=== PATIENT | female | born 1950 | race Caucasian/White ===

== ENCOUNTER 2022-04-15 11:15 | Outpatient (RCR) | payer MEDICARE, SELFPAY ==
--- NOTE | 2022-02-28 10:11 | PT.OPEX ---
PT [place] Outpatient Eval PT [facility] Outpatient Eval Start: 02/28/22 07:50 Freq: Status: Active Protocol: Document 02/28/22 07:51 FAZAL (Rec: 02/28/22 10:04 FAZAL [id number]) E-Signed By Colleen Tanner, PT Physical Therapy Outpatient Evaluation Insurance Information Recert Due Date 05/29/22 Insurance Name Medicare B,[employer]are Medical Diagnosis Cervicalgia, tension headache Treating Diagnosis Neck pain, TMJ pain, limited cervical ROM, DNF weakness, headache, poor postural positioning Referring MD Monteiro Subjective Subjective Patient reports to PT with primary complaint of neck pain (L>R) with associated TMJ pain (L) that began about 6-7 months ago with gradual and insidious onset however mainly attributes this to stress. She has focused on not clenching her jaw throughout the day which is helpful and sometimes uses mouth guard throughout the day. She has found herself also jutting her neck forward when she works at the computer. 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 She was seen in ED in October for this and was given gabapentin. Was also prescribed tramadol by her dentist which does help with TMJ pain and headaches but ultimately wants to be medication free. Other goals are to improve neck motion to look over her shoulder while driving, sleep throughout the night, reduce headache frequency/intensity, eliminate jaw pain. 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 Objective Other/Pertinent Objective Cervical ROM: -R Rot: 51 -L Rot:56 -R Sidebend:8 -L Sidebend:12 Seated posture: forward head, slight rounded shoulders Jaw mobility: -WNL jaw depression however deviation to the right, no clicking or popping -WNL jaw deviation R/L Palpation: increased tone L masseter, L UT DNF strength: able to hold and maintain x7 sec prior to accessory muscle use C-spine: hypomobility throughout with L side glides Assessment Assessment/Impression Patient is a 71 year old female presenting to physical therapy for evaluation and treatment of neck/jaw pain with associated headaches. Patient presents with Neck pain, TMJ pain, limited cervical ROM, DNF weakness, headache, poor postural positioning. These impairments are limiting the patients ability to drive, sleep, sit at computer, concentrate, perform work related tasks on farm. Patient appears motivated to participate in PT and presents with good prognosis to improve mobility, strength, proprioception and return to functional activities with skilled physical therapy intervention. Primary Functional Limitations drive, sleep, sit at computer, concentrate, perform work related tasks on farm Plan of Care Rehabilitation Potential Good Physical Therapy Goals In 6 weeks (04/11/22) Pt will demonstrate improved sitting posture without cueing in consecutive sessions in order to decrease strain on neck and TMJ. Pt will demonstrate WNL and pain free and equal cervical rotation in order to be able to look over her shoulders while driving Pt will report 25-50% improvement in frequency of headaches in order to improve concentration with work In 12 weeks (05/29/22) Pt will be independent and compliant with HEP Pt will report 75-100% improvement in frequency of headaches in order to improve concentration with work Pt will be able to maintain DNF chin tuck + lift for 30 seconds with minimal accessory muscle compensation in order to demonstrate increased DNF strength. Pt will demonstrate correct lifting mechanics floor to waist and waist to overhead 100% of the time without cuing in order to reduce neck strain with tasks on farm. Treatment Plan/Direct Interventions Heat,Ice/Cold/Vasopneumatic, Joint Mobilization,Manual Therapy,Neuromuscular Re-ed, Self-Care/Home Management, Therapeutic Activities Frequency/Duration Every other week for 12 weeks Patient Will Be Discharged From Therapy Completion of LTG(s), Independent w/HEP, Independently Progressing Evaluation Billing Untimed Code Treatment Minutes 26 Complexity Low Certification Information Initial Certification Date 02/28/22 Ending Certification Date 05/29/22
== END 2022-04-18 12:14 | disposition home or self-care (01) ==
PROVIDERS: PCP Internal Medicine; Visit Provider Internal Medicine
DX: M54.2 Cervicalgia (principal); G44.209 Tension-type headache, unspecified, not intractable; Z51.89 Encounter for other specified aftercare
CPT/HCPCS: 97110; 97140; 97161; 97535

== ENCOUNTER 2022-06-27 10:02 | Outpatient (CLI) | payer MEDICARE, SELFPAY ==
--- NOTE | 2022-06-27 10:15 | MR_ITS ---
[address] [address] Phone:?[phone] Fax:?[phone] Referring Physician Information: Byron Tipton M.D. [address] [facility] [address] Phone:?[phone] Fax:?[phone] Patient:Jessie Griffith D.O.B:?1950 Sex:?Female Phone:?[phone] [facility] MRN:?[id number] Exam Date:?06/27/2022 ? EXAM: MRI of the RIGHT SHOULDER, without contrast CLINICAL: Female, 71 years old, with right shoulder pain. INDICATION: Evaluate rotator cuff. PRIOR SURGERY: None reported. PLAIN FILMS: None available. COMPARISONS: No prior MRIs available. TECHNICAL: Using a 1.5T MR scanner and a localizing shoulder surface coil: 3.0 mm?coronal obliques: PD, T2, STIR 3.0 mm?sagittal obliques: PD, T2 3.0 mm?axials: PD, T2 SEDATION: None. CONTRAST: None. IMPRESSION: 1. Broad-based moderate towards marked deep surface tendinosis/attenuation of entire supraspinatus tendon without convincing well-defined full-thickness attenuation/tear, retraction or muscle atrophy. 2. Less prominent deep surface attenuation extends into adjacent infraspinatus tendon without full-thickness tear. 3. Chronic attenuation of the distal superior subscapularis tendon without convincing full-thickness tear, retraction or muscle atrophy. 4. Perhaps slight medial subluxation of the biceps tendon without more prominent displacement/dislocation or rupture. 5. Marked subacromial-subdeltoid bursal edema/bursitis. 6. Acromiohumeral distance at the lower limits of normal and moderate inferior hypertrophy of the acromioclavicular joint contribute an element of encroachment upon the subacromial space. 7. Mild right clinical osteoarthritis with moderate glenohumeral joint effusion. FINDINGS: Glenohumeral joint: Effusion/cyst: Moderate glenohumeral joint effusion. No paralabral ganglion cyst. Articular cartilage: Humeral head: No osteochondral abnormalities. Glenoid: No osteochondral abnormalities. Loose bodies: No demonstrable loose bodies. Inferior glenohumeral ligament/axillary recess: The axillary recess is normal in thickness and signal. No evidence of adhesive capsulitis or capsuloligamentous injury. Labrum: Rather prominent attenuation of the inferior and posterior greater than anterior labrum without convincing more well-defined linear labral tear. Bones: Proximal humerus: No fracture or marrow edema/pathology. Slight to mild subcortical bone marrow edema and irregularity of the anterior greater tuberosity underlies distal insertional rotator cuff tendinopathy and partial tear detailed below. The proximal humerus is otherwise intact Glenoid: Moderate towards marked chondral thinning of the superior into central aspect of the glenoid. No osseous Bankart lesion. Coracoacromial arch: Acromion morphology: Type II acromion with slight to mild anterior subacromial spur/enthesophyte. No mesoacromion or preacromion. Acromiohumeral space: At the lower limits of normal at a minimum of 5 mm associated with the above morphology. Coracohumeral space: Moderately narrowed. 9 mm bony distance. 4.5 mm soft tissue distance. 16 mm coracoid overlap. Acromioclavicular joint: Joint: Moderate degenerative hypertrophy of acromioclavicular joint contributes moderate encroachment upon the subacromial space where it abuts and mildly encroaches upon the contour of the underlying supraspinatus myotendinous junction (coronal T2 series 7, image 18; sagittal T2 series 8, image 12). Ligaments: Coracoclavicular ligaments are intact. Bursae: Subacromial-subdeltoid: Moderate towards marked subacromial-subdeltoid bursal fluid/bursitis (coronal STIR series 4, images 23-10). Subcoracoid: Also moderate abnormal-appearing subcoracoid bursal fluid/bursitis (axial T2 series 3, images 45-52). Rotator cuff and muscles/tendons: Supraspinatus: Abnormal supraspinatus tendinosis/tendinopathy is accompanied by rather broad-based deep surface fraying and attenuation/wear of virtually the entire supraspinatus tendon involving between 50 and closer to 80%, even 90% of tendon thickness (coronal STIR series 4, images 16-12; sagittal images 11-5). No convincing well-defined full-thickness attenuation/tear. No myotendinous junction retraction. Mild decreased muscle bulk is similar to other musculature of the shoulder. Infraspinatus: Tendinosis/tendinopathy and some deep surface attenuation extends into infraspinatus tendon as well, without full-thickness tear. No tendon or myotendinous junction retraction. No muscle atrophy. Teres minor: No tendinopathy, tear or atrophy. Subscapularis: Attenuation of the distal superior subscapularis tendon does not appear associated convincing defined full-thickness tear. No tendon retraction. Mild decreased muscle bulk is similar to other musculature of the shoulder. Deltoid: No strain or atrophy. Biceps tendon, long head: Slight medial subluxation of the long head of the biceps tendon without more prominent displacement/dislocation or rupture. Axilla: No axillary masses or abnormally enlarged lymphadenopathy. F Electronically signed on 06/28/2022 4:03:00 PM by Figueroa Piña M.D.
== END 2022-06-27 10:03 | disposition home or self-care (01) ==
LOC: MRI 10:03
PROVIDERS: PCP Internal Medicine; Visit Provider Orthopaedic Surgery
DX: M25.511 Pain in right shoulder (principal); S43.431A Superior glenoid labrum lesion of right shoulder, initial encounter; M75.51 Bursitis of right shoulder; M25.411 Effusion, right shoulder
CPT/HCPCS: 73221

== ENCOUNTER 2022-10-04 11:00 | Outpatient (RCR) | payer MEDICARE, SELFPAY ==
--- NOTE | 2022-08-08 15:30 | PT.OPEX ---
PT [place] Outpatient Eval PT [facility] Outpatient Eval Start: 08/08/22 13:01 Freq: Status: Active Protocol: Document 08/08/22 13:01 MERARI (Rec: 08/08/22 13:04 MERARI [id number]) E-signed By Meghan Alcantar PT Physical Therapy Outpatient Evaluation Insurance Information Recert Due Date 11/02/22 Insurance Name Medicare B Medical Diagnosis Rt shoulder Bursitis Treating Diagnosis Rt shoulder pain, reduced ease of ADL's, impaired AROM due to pain Rt shoulder weakness Poor posture Referring MD Dr Byron Tipton Subjective Subjective César reports having Rt shoulder and Lt hip pain. She was in so much pain, she started doing some shoulder ex she found on google, and her pain is much less since then. Dr Tipton was more concerned about pain in her shoulder due to rot cuff concerns. They did X-rays at Lt hip and it is perfect. I am concerned with my Rt knee too, looking at possibly having a TKR (I had my Lt TKR done previously). 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 Pain has been present for about 4 months. 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 WAlking in snow and mud. 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 Lt side to T10 Strength 5/5 but discomfort with testing Rt shoulder FF and ER Palpation Pain with moderate pressure over lateral humeral head, supraspinatus and infraspinatus mm belly Posture When asked to sit and stand with correct posture, she is able to do so. However, she slowly falls into shoulder protraction and slumped reduced lumbar lordosis, forward head. Assessment Assessment/Impression 71 yo with DX of Rt Shoulder Bursitis. She presents with shoulder protraction and slight elevation of Rt shoulder. Good AROM, with the exception of functional IR to sacrum (Lt to T10). MMT normal 5/5 but pain reported with testing FF and ER. Palpably, pain with moderate pressure at supraspinatus tendon and infraspinatus mm belly. Poor scapulo-humeral rhythm, lacking ana paula-scapular strength . She will benefit from continued skilled physical therapy to provide appropriate stretch/strengthening and postural education, use of ice for pain control. Plan of Care Rehabilitation Potential Good Physical Therapy Goals In 4-6 visits, César will be able to: 1. Demonstrate independence in HEP with emphasis on alignment, pace, reps and HOLD times 2. Demonstrate proper execution of posture in sitting and stance, with lifting and carrying. 3. Improved sleeping tolerance to 5 hours per night without awakening secondary to Rt shoulder pain. 4. Complete up to 2 hours of constant use of Rt UE without pain greater than 3/10 80% of the time (wash windows, cook, laundry, goat cares) 5. Computer use up to 4 hours / day without pain greater than 2/10 at Rt shoulder, 80% of the time. Coordination/Communication With Referral Source Treatment Plan/Direct Interventions Ice/Cold/Vasopneumatic,Joint Mobilization,Manual Therapy, Self-Care/Home Management, Therapeutic Activities, Therapeutic Exercises Patient Will Be Discharged From Therapy Completion of LTG(s),Skills Plateau,Independent w/HEP, Independently Progressing Evaluation Billing Untimed Code Treatment Minutes 21 Complexity Moderate Certification Information Initial Certification Date 08/08/22 Ending Certification Date 11/02/22 Provider Signature Shows Agreement With POC & Medical Necessity Physician Signature & Date Requested Please Sign/Date Here Physician Comment/Change : Physician NPI Number #
== END 2022-12-19 11:41 | disposition home or self-care (01) ==
PROVIDERS: PCP Internal Medicine; Visit Provider Orthopaedic Surgery
DX: M75.51 Bursitis of right shoulder (principal); Z51.89 Encounter for other specified aftercare
CPT/HCPCS: 97110; 97140; 97162

== ENCOUNTER 2023-04-14 09:15 | Outpatient (CLI) | payer MEDICARE, SELFPAY | END 2023-04-14 09:16 | disposition home or self-care (01) | LOC: NFLDREF 04-17 08:58 | PROVIDERS: PCP Internal Medicine; Referring Provider Internal Medicine; Visit Provider Internal Medicine | DX: E78.5 Hyperlipidemia, unspecified (principal); I10 Essential (primary) hypertension | CPT/HCPCS: 80048; 80061 ==

== ENCOUNTER 2023-04-17 09:55 | Outpatient (CLI) | payer MEDICARE, SELFPAY | END 2023-04-17 09:56 | disposition home or self-care (01) | LOC: NFLDREF 09:56 | PROVIDERS: PCP Internal Medicine; Visit Provider Internal Medicine | DX: R00.2 Palpitations (principal) | CPT/HCPCS: 84443 ==

== ENCOUNTER 2023-04-23 13:13 | Emergency (ER) | payer MEDICARE, SELFPAY ==
[2023-04-23] VITALS (15 sets, daily range): BP systolic 116–137; BP diastolic 67–114; PULSE 52–160; RESP 12–18; TEMP 37; O2SAT 93–96; BMI 27.4
--- NOTE | 2023-04-23 13:40 | ED.GENADULT ---
HPI - General Adult General Chief complaint: Arrhythmia/Palpitations Stated complaint: heart palpitations Time Seen by Provider: 04/23/23 13:17 Source: patient Mode of arrival: ambulatory Limitations: no limitations History of Present Illness HPI narrative: 72-year-old female coming in today complaining of palpitations. She states that she feels a little weak but denies feeling short of breath. She has no chest pain. She states that this has been going on for quite some time. She states that she 1st noticed palpitations about 3 years ago after she had a knee surgery. They came on rarely and lasted a few hours and then would disappear. Since August of this year she has felt them 2 or 3 times per month, each time lasting several hours. She was seen in the clinic last week for yearly physical where she mention these palpitations, blood work was done last week including a TSH, everything was unremarkable. Patient denies nausea or diaphoresis. Possible history significant for hypertension hyperlipidemia, history of systolic murmur. She takes rosuvastatin and chlorthalidone. Related Data Home Medications Medication Instructions Recorded Confirmed calcium carbonate 600 mg calcium 600 mg PO QDAY 03/16/22 04/17/23 (1,500 mg) tablet cholecalciferol (vitamin D3) 50 50 mcg PO QDAY 03/16/22 04/17/23 mcg (2,000 unit) capsule magnesium oxide 500 mg capsule 250 mg PO QDAY 03/16/22 04/17/23 docibvpgtxmn-ciioeran-ceajtl tablet 1 tab PO QDAY 03/16/22 04/17/23 omega 9-lrq-pir-fish oil 1,000 mg 1 cap PO QDAY 03/16/22 04/17/23 (120 mg-180 mg) capsule (Fish Oil) B-complex with vitamin C 1 cap PO QDAY 06/20/22 04/17/23 Previous Rx's Medication Instructions Recorded chlorthalidone 25 mg tablet 12.5 mg (1/2 x 25 mg) PO QDAY #45 03/17/22 tabs rosuvastatin 20 mg tablet 20 mg PO QDAY #90 tabs 04/17/23 apixaban 5 mg tablet (Eliquis) 5 mg PO BID #60 tabs 04/23/23 diltiazem HCl 120 mg 120 mg PO Q24H #30 caps 04/23/23 capsule,extended release 24 hr (Cardizem CD) Allergies Allergy/AdvReac Type Severity Reaction Status Date / Time Shellfish Allergy Allergy Uncoded 06/29/22 13:49 Review of Systems Status of ROS: Reports: 10 or more systems reviewed and unremarkable except as noted in History and below [facility] Medical History Carpal tunnel syndrome ?G56.00 - Carpal tunnel syndrome, unspecified upper limb (ICD-10) Surgical History History of total knee replacement ?Z96.659 - Presence of unspecified artificial knee joint (ICD-10) History of dilation and curettage ?Z98.890 - Other specified postprocedural states (ICD-10) Social History Smoking Status: Never smoker Non-prescribed substance use: denies use Little interest or pleasure in doing things: not at all Feeling down, depressed, or hopeless: not at all Exam Narrative: Exam Narrative: Well-nourished well-developed patient in no acute distress. Alert and oriented. Answers questions appropriately. Mood and affect are appropriate. Thoughts are goal oriented and rational. No tangential or magical thinking noted. Patient speaks in full sentences without needing to catch her breath. HEENT: Normocephalic atraumatic. Pupils are equally round reactive to light. Extraocular muscles are intact. Conjunctivae are moist without any icterus noted. Moist mucous membranes. Neck is supple. Cardiovascular: Irregularly irregular, tachycardic. Heart is beating too fast to note a systolic murmur. Lungs: Clear to auscultation bilaterally no wheezes rhonchi or rales are appreciated. Patient takes deep breaths without any discomfort. Abdomen: Soft and nontender nondistended with normal bowel sounds. Extremities: Bilateral lower extremities are without edema. Skin: Well perfused without any obvious rashes. Const: Vital Signs, click to edit/add: Vital Signs - 24 hr 04/23/23 13:20 04/23/23 13:25 04/23/23 14:02 Temperature 98.6 F Pulse Rate 98 Pulse Rate [Pulse Oximeter] 160 H Respiratory Rate 18 12 Blood Pressure 128/67 Blood Pressure [Le ft Upper Arm] 137/71 Pulse Oximetry 96 96 96 Oxygen Delivery Me thod Room Air 04/23/23 14:45 04/23/23 15:02 04/23/23 15:32 Temperature Pulse Rate 117 H 112 H 103 H Pulse Rate [Pulse Oximeter] Respiratory Rate 18 14 Blood Pressure 116/82 129/114 H Blood Pressure [Le ft Upper Arm] Pulse Oximetry 93 95 95 Oxygen Delivery Me thod 04/23/23 16:01 04/23/23 16:10 04/23/23 16:32 Temperature Pulse Rate 96 83 83 Pulse Rate [Pulse Oximeter] Respiratory Rate 16 12 14 Blood Pressure 120/92 H 127/78 128/76 Blood Pressure [Le ft Upper Arm] Pulse Oximetry 95 96 96 Oxygen Delivery Me thod 04/23/23 17:02 04/23/23 17:31 Temperature Pulse Rate 73 96 Pulse Rate [Pulse Oximeter] Respiratory Rate 16 14 Blood Pressure 116/91 H 127/87 Blood Pressure [Le ft Upper Arm] Pulse Oximetry 96 96 Oxygen Delivery Me thod Course Course Hospital Course: EKG, read by me, shows atrial fibrillation with a pulse of 158. IV is established and fluids were started. Patient received 10 mg of IV Cardizem as her blood pressure was a little low 115 systolic. While her pulse did not react to this, her blood pressure did increase to 130s. Repeat 10 mg was given without any change. Therefore a 20 mg bolus was done. This brought her pulse in to the 1 teens. Blood pressure remained stable. I did give her an oral dose of metoprolol succinate 25 mg. Lab work was done was unremarkable. Patient was monitored for several hours and pulse fluctuated between 80 and 130. I did speak to Cardiology at [facility], Dr. Brandon, who recommended either oral Cardizem or a Cardizem drip until we could get her pulse less than 110 consistently. I did go into room to tell the patient if she is going to be admitted and she did spontaneously convert to normal sinus rhythm. EKG done at this time showed sinus bradycardia with a pulse of 52. While she is being monitored here prior to converting, she did not feel her heart was palpitating or beating faster than usual. Vital Signs Vital signs: Initial Vital Signs Pulse Oximetry 96 04/23/23 13:20 Vital Signs Pulse Oximetry 96 04/23/23 13:20 Temperature 98.6 F 04/23/23 13:25 Pulse Rate 96 04/23/23 17:31 Respiratory Rate 14 04/23/23 17:31 Blood Pressure 127/87 04/23/23 17:31 Pulse Oximetry 96 04/23/23 17:31 Oxygen Delivery Method Room Air 04/23/23 13:25 Medical Decision Making MDM Narrative Medical decision making narrative: 72-year-old female with paroxysmal atrial fibrillation - converted back to normal sinus rhythm. Patient will be discharged home at this time and we will start her on Eliquis and oral diltiazem per recommendation of retail department manager. She will follow up with her primary care provider and scheduled. One dose of Eliquis given prior to discharge today. Medical Records Medical records reviewed: Yes I reviewed the patient's medical records Lab Data Lab results reviewed: Yes I reviewed the patient's lab results Labs: Lab Results 04/23/23 Range/Units 13:27 WBC 7.18 (4.50-11.00) K/uL RBC 5.25 H (4.00-5.20) m/uL Hgb 15.1 (12.0-16.0) gm/dL Hct 46.2 (33.0-51.0) % MCV 88 (80-100) fL MCH 29 (26-34) pg MCHC 33 (32-36) gm/dL RDW Coeff of [place] 13.2 (11.5-15.5) % Plt Count 216 (140-440) K/uL Neut % (Auto) 63.9 (42.0-72.0) % Lymph % (Auto) 28.8 (20-44) % [place] % (Auto) 5.4 (0.0-11.0) % Eos % (Auto) 1.4 (0.0-7.0) % Baso % (Auto) 0.4 (0.0-3.0) % Neut # (Auto) 4.58 (1.7-7.0) K/uL Lymph # (Auto) 2.07 (0.90-2.90) K/uL [place] # (Auto) 0.40 (0.00-0.90) K/UL Eos # (Auto) 0.10 (0.00-0.50) K/uL Baso # (Auto) 0.03 (0.00-0.30) K/uL Abs Immat Gran (auto) 0.01 (0.00-0.30) K/uL Imm/Tot Granulo (auto) 0.1 % Sodium 143 (135-149) mmol/L Potassium 3.6 (3.6-5.1) mmol/L Chloride 104 (96-114) mmol/L Carbon Dioxide 31 (20-32) mmol/L Anion Gap 8 (7-15) mEq/L BUN 21 (7-30) mg/dL Creatinine 0.9 (0.5-1.5) mg/dL Estimated Creat Clear 49.00 Estimated GFR 69 ml/min Glucose 146 H (60-115) mg/dL Calcium 10.7 H (8.4-10.6) mg/dL Magnesium 2.2 (1.5-2.6) mg/dL Troponin I 0.02 (0.01-0.04) ng/mL ECG Data Attestation: I personally reviewed and interpreted this ECG as follows: Discharge Plan Discharge Clinical Impression: AF (paroxysmal atrial fibrillation) Patient Disposition: Home, Self-Care Condition: Improved Additional Instructions: Start daily Eliquis which is a blood thinner to prevent blood clots. Start daily diltiazem which will bring your pulse down should you go back into atrial fibrillation. Follow-up with your primary care provider this coming week to see how you are doing, and to check your blood pressure and pulse. Prescriptions: New Eliquis 5 mg tablet 5 mg PO BID Qty: 60 2RF diltiazem HCl [Cardizem CD] 120 mg capsule,extended release 24hr 120 mg PO Q24H Qty: 30 2RF No Action B-complex with vitamin C Capsule 1 cap PO QDAY rosuvastatin 20 mg tablet 20 mg PO QDAY Qty: 90 0RF magnesium oxide 500 mg capsule 250 mg PO QDAY calcium carbonate 600 mg calcium (1,500 mg) tablet 600 mg PO QDAY wlnyhdoemhsq-azpywbve-syfbfn Tablet 1 tab PO QDAY cholecalciferol (vitamin D3) 50 mcg (2,000 unit) capsule 50 mcg PO QDAY omega 3-fjl-xzl-fish oil [Fish Oil] 1,000 mg (120 mg-180 mg) capsule 1 cap PO QDAY chlorthalidone 25 mg tablet 12.5 mg PO QDAY Qty: 45 3RF Follow Up/Referrals: Tiana Monteiro MD [Primary Care Provider] - Stand Alone Forms: [employer] Info Instructions
[2023-04-23 13:48] LABS: Basophils Absolute Auto 0.03 K/uL (0.00-0.30); Basophils Percent Auto 0.4 % (0.0-3.0); Eosinophils Percent Auto 1.4 % (0.0-7.0); Hematocrit 46.2 % (33.0-51.0); Hemoglobin* 15.1 gm/dL (12.0-16.0); Immature Granulocytes Abs Auto 0.01 K/uL (0.00-0.30); Immature Granulocytes Pct Auto 0.1 %; Lymphocytes Absolute Auto 2.07 K/uL (0.90-2.90); Lymphocytes Percent Auto 28.8 % (20-44); Mean Corpuscular HGB Conc 33 gm/dL (32-36); Mean Corpuscular Hemoglobin 29 pg (26-34); Mean Corpuscular Volume 88 fL (80-100); Monocytes Percent Auto 5.4 % (0.0-11.0); Neutrophils Absolute Auto 4.58 K/uL (1.7-7.0); Neutrophils Percent Auto 63.9 % (42.0-72.0); Platelet Count* 216 K/uL (140-440); RDW Coefficient of Variation % 13.2 % (11.5-15.5); Red Blood Count 5.25 m/uL (4.00-5.20); White Blood Count* 7.18 K/uL (4.50-11.00)
[2023-04-23] MEDS: 0.9 % SODIUM CHLORIDE 1000 ml 1,000 ML IV (13:52)
[2023-04-23] MEDS: dilTIAZem 5 MG/ML inj 10 MG IVP ×2 (13:53→14:26)
[2023-04-23 13:55] LABS: Slide Review Reflex No
[2023-04-23 14:01] LABS: Chloride* 104 mmol/L (96-114); Potassium* 3.6 mmol/L (3.6-5.1); Sodium* 143 mmol/L (135-149)
[2023-04-23 14:04] LABS: Anion Gap 8 mEq/L (7-15); Blood Urea Nitrogen* 21 mg/dL (7-30); Carbon Dioxide* 31 mmol/L (20-32); Creatinine* 0.9 mg/dL (0.5-1.5); Estimated Glomerular Filt Rate 69 ml/min
[2023-04-23 14:05] LABS: Calcium* 10.7 mg/dL (8.4-10.6); Glucose* 146 mg/dL (60-115); Magnesium* 2.2 mg/dL (1.5-2.6)
[2023-04-23 14:17] LABS: Troponin I* 0.02 ng/mL (0.01-0.04)
[2023-04-23] MEDS: METOPROLOL SUCCINATE (XL) 25 MG TAB PO (15:46)
[2023-04-23] MEDS: dilTIAZem 5 MG/ML inj 20 MG IVP (16:11)
[2023-04-23] MEDS: APIXABAN 5 MG TABLET PO (18:26)
== END 2023-04-23 18:40 | disposition home or self-care (01) ==
PROVIDERS: Emergency Provider Family Medicine; PCP Internal Medicine
DX: I48.0 Paroxysmal atrial fibrillation (principal)
CPT/HCPCS: 36415; 80048; 83735; 84484; 85025; 93005; 94761; 96361; 96374; 96375; 96376; 99284; 99285; A9270; J7030

== ENCOUNTER 2023-05-18 14:11 | Outpatient (CLI) | payer MEDICARE, SELFPAY ==
--- NOTE | 2023-05-18 14:30 | CRLHL7_ITS ---
For Patients: As a result of the Century Cures Act, medical imaging exams and procedure reports are released immediately into your electronic medical record. You may view this report before your referring provider. If you have questions, please contact your health care provider. DXA BONE MINERAL DENSITY STUDY Reason for exam: Asymptomatic menopausal state. Current height (in): 66. Weight (lb): 174. Menopause age: 62. Ethnicity: White. 1. Have you had a previous hip or vertebral fracture? No. 2. Have you had any fractures during your adult life which did not result from significant trauma (e.g., auto accident)? No. 3. Did either of your parents have a hip fracture? No. 4. Do you smoke? No. 5. Have you ever taken Glucocorticoids? No. 6. Do you have rheumatoid arthritis? No. 7. Do you have secondary osteoporosis? No. 8. Do you drink 3 or more alcoholic drinks per day? No. 9. Are you being treated for osteoporosis? No. 10. Have you ever taken any of the following medications: Actonel, Evista, Fosamax, Miacalcin, Reclast, Boniva, Forteo, HRT (i.e., estrogen/hormone therapy), Protelos, Prolia, Vitamin D, Calcium, other ??? please specify. ANSWER: Yes, Vitamin D and calcium. 11. Do you have any of the following medical conditions: Anorexia or bulimia, asthma or emphysema, end stage renal disease, hyperparathyroidism, any seizure disorders, cancer, inflammatory bowel diseases, hysterectomy, other ??? please specify. ANSWER: Yes, AFIB. 12. What was your maximum height (inches)? 66. 13. Do you perform weight bearing exercise regularly? Yes. 14. Do you regularly consume dairy products? Yes. 15. Do you drink caffeinated beverages? Yes. If female: 16. At what age did your period start? 18. 17. Are you premenopausal? No. 18. How many full-term pregnancies have you had? 4. 19. Have you ever missed your period for more than 6 months in a row (not including or menopause)? No. TECHNIQUE: Bone mineral density study was performed using the [employer]. FINDINGS: The results of the study expressed as bone mineral density (BMD) are as follows: Lumbar spine L2 to L4: BMD: 1.279 g/cm2. T-score: 1.8. Z-score: 4.0 Neck Left: BMD: 0.759 g/cm2. T-score: -0.8. Z-score: 1.0 Right: BMD: 0.827 g/cm2. T-score: -0.2. Z-score: 1.6 Total Left: BMD: 0.907 g/cm2. T-score: -0.3. Z-score: 1.2 Right: BMD: 0.964 g/cm2. T-score: 0.2. Z-score: 1.7 IMPRESSION: Normal bone density. Stephan Yao M.D. Diagnostic Radiologist [email or web address]/Dictated by: Stephan Yao MD @ 05/19/2023 12:23:00 PM (Electronically Signed)
== END 2023-05-18 14:12 | disposition home or self-care (01) ==
LOC: RAD 14:12
PROVIDERS: PCP Internal Medicine; Visit Provider Internal Medicine
DX: Z78.0 Asymptomatic menopausal state (principal); R00.2 Palpitations; I51.7 Cardiomegaly; R01.1 Cardiac murmur, unspecified
CPT/HCPCS: 77080; 93306

== ENCOUNTER 2023-06-29 10:31 | Inpatient (IN) | payer MEDICARE, SELFPAY ==
[2023-06-29] VITALS (50 sets, daily range): BP systolic 92–143; BP diastolic 58–128; PULSE 50–148; RESP 15–22; TEMP 36.3–37.2; O2SAT 93–98; BMI 28.2; BMI 28.1
[2023-06-29 11:20] LABS: Troponin, Point-of-Care* 0.01 ng/ml (0.01-0.04)
[2023-06-29] MEDS: 0.9 % SODIUM CHLORIDE 500 ML 500 ML IV ×2 (11:29→15:00)
--- NOTE | 2023-06-29 11:33 | ED_ITS ---
HPI - General Adult General Date Seen: 06/29/23 Chief complaint: Arrhythmia/Palpitations Stated complaint: Heart palpitations Time Seen by Provider: 06/29/23 11:11 Source: patient Mode of arrival: ambulatory Limitations: no limitations History of Present Illness HPI narrative: Patient is a 72-year-old woman who presents with atrial fibrillation which started a couple of hours prior to presentation. She says that she thinks she has probably had atrial fibrillation intermittently for 10 years but it was diagnosed in April and she was started on diltiazem and Eliquis. She takes her medications regularly. She says she has not really had trouble since starting the diltiazem and thought she was cured until this morning when she felt palpitations. She says that she gets a little bit lightheaded when she goes into atrial fibrillation but does not get chest pain or significant shortness of breath. She has had an echo which she reports showed of slightly enlarged left atrium but was otherwise unremarkable. She has not had a stress test. She has high blood pressure and high cholesterol which are managed with medications. She has no known coronary artery disease. She recently started exercising again, just walking on the treadmill and weightlifting, feels like that is been going fine. She does not smoke or drink. She is here with her . Related Data Home Medications Medication Instructions Recorded Confirmed calcium carbonate 600 mg calcium 600 mg PO QDAY 03/16/22 04/27/23 (1,500 mg) tablet cholecalciferol (vitamin D3) 50 50 mcg PO QDAY 03/16/22 04/27/23 mcg (2,000 unit) capsule magnesium oxide 500 mg capsule 250 mg PO QDAY 03/16/22 04/27/23 wyoxstqygevu-pxmdpcmr-hzcyty tablet 1 tab PO QDAY 03/16/22 04/27/23 B-complex with vitamin C 1 cap PO QDAY 06/20/22 04/27/23 lutein extract 15 mg-zeaxanthin 1 cap PO DAILY 04/27/23 04/27/23 extract 0.7 mg capsule omega 3-iuf-ass-fish oil 1,000 mg 2 cap PO QDAY 04/27/23 04/27/23 (120 mg-180 mg) capsule (Fish Oil) Previous Rx's Medication Instructions Recorded rosuvastatin 20 mg tablet 20 mg PO QDAY #90 tabs 04/17/23 chlorthalidone 25 mg tablet 12.5 mg (1/2 x 25 mg) PO QDAY #45 04/25/23 tabs apixaban 5 mg tablet (Eliquis) 5 mg PO BID #180 tabs 04/27/23 diltiazem HCl 120 mg 120 mg PO Q24H #90 caps 04/27/23 capsule,extended release 24 hr (Cardizem CD) Allergies Allergy/AdvReac Type Severity Reaction Status Date / Time shellfish derived Allergy Verified 06/29/23 11:23 Review of Systems Status of ROS: Reports: 10 or more systems reviewed and unremarkable except as noted in History and below [facility] Medical History Carpal tunnel syndrome ?G56.00 - Carpal tunnel syndrome, unspecified upper limb (ICD-10) Surgical History History of total knee replacement ?Z96.659 - Presence of unspecified artificial knee joint (ICD-10) History of dilation and curettage ?Z98.890 - Other specified postprocedural states (ICD-10) Social History Smoking Status: Never smoker Do you use any of these nicotine containing products: None Second hand tobacco smoke exposure: No How often do you have a drink containing alcohol: never How often do you have six or more drinks on one occasion: Never AUDIT-C Alcohol total score: 0 Non-prescribed substance use: denies use Little interest or pleasure in doing things: not at all Feeling down, depressed, or hopeless: not at all service: No Exam Narrative: Exam Narrative: Vital signs as noted above. In general, an alert, well-appearing patient. Head: Normocephalic, atraumatic. Eyes: Pupils are equal reactive. Extraocular movements are full. Conjunctivae are normal. ENT: Mucous membranes are moist. Throat is normal. Neck: Supple without lymphadenopathy. Heart: Tachycardic and irregular. No murmur. Lungs: Clear bilaterally. No increased work of breathing, crackles or wheezes. Abdomen: Soft and nontender. No organomegaly. Extremities: Well perfused. No edema. No calf tenderness. Pulses intact. Neurologic: Patient is alert and oriented to person and place. Speech is fluent. Face is symmetric. Moves all extremities equally. Affect: Normal. Skin: Warm and dry. Well perfused. Const: Vital Signs, click to edit/add: Vital Signs - 24 hr 06/29/23 10:40 06/29/23 10:48 06/29/23 11:03 Temperature 97.3 F L Pulse Rate 148 H Pulse Rate [Pulse Oximeter] 146 H Respiratory Rate 20 Blood Pressure 143/128 H Blood Pressure [Le ft Upper Arm] 139/93 H Pulse Oximetry 97 93 Oxygen Delivery Me thod Room Air 06/29/23 11:30 06/29/23 11:35 06/29/23 11:37 Temperature Pulse Rate 135 H 132 H 120 H Pulse Rate [Pulse Oximeter] Respiratory Rate Blood Pressure 129/109 H Blood Pressure [Le ft Upper Arm] Pulse Oximetry 96 96 97 Oxygen Delivery Me thod 06/29/23 11:38 06/29/23 11:39 06/29/23 11:45 Temperature Pulse Rate 118 H 117 H 101 H Pulse Rate [Pulse Oximeter] Respiratory Rate Blood Pressure 131/94 H Blood Pressure [Le ft Upper Arm] Pulse Oximetry 94 95 95 Oxygen Delivery Me thod 06/29/23 12:02 06/29/23 12:04 06/29/23 12:05 Temperature Pulse Rate 118 H 116 H 112 H Pulse Rate [Pulse Oximeter] Respiratory Rate Blood Pressure 122/101 H Blood Pressure [Le ft Upper Arm] Pulse Oximetry 96 95 94 Oxygen Delivery Me thod 06/29/23 12:15 06/29/23 12:30 06/29/23 12:31 Temperature Pulse Rate 110 H 103 H 130 H Pulse Rate [Pulse Oximeter] Respiratory Rate Blood Pressure 130/109 H Blood Pressure [Le ft Upper Arm] Pulse Oximetry 93 94 95 Oxygen Delivery Me thod 06/29/23 12:45 06/29/23 13:00 06/29/23 13:02 Temperature Pulse Rate 127 H 114 H 92 Pulse Rate [Pulse Oximeter] Respiratory Rate Blood Pressure 117/88 Blood Pressure [Le ft Upper Arm] Pulse Oximetry 96 94 95 Oxygen Delivery Me thod 06/29/23 13:03 06/29/23 13:09 06/29/23 13:15 Temperature Pulse Rate 71 108 H 108 H Pulse Rate [Pulse Oximeter] Respiratory Rate Blood Pressure 122/59 L Blood Pressure [Le ft Upper Arm] Pulse Oximetry 94 96 96 Oxygen Delivery Me thod 06/29/23 13:30 06/29/23 13:32 06/29/23 13:45 Temperature Pulse Rate 118 H 118 H 88 Pulse Rate [Pulse Oximeter] Respiratory Rate Blood Pressure 118/68 Blood Pressure [Le ft Upper Arm] Pulse Oximetry 95 95 96 Oxygen Delivery Me thod 06/29/23 14:00 06/29/23 14:02 06/29/23 14:15 Temperature Pulse Rate 87 104 H 117 H Pulse Rate [Pulse Oximeter] Respiratory Rate Blood Pressure 95/81 Blood Pressure [Le ft Upper Arm] Pulse Oximetry 98 97 95 Oxygen Delivery Me thod 06/29/23 14:30 06/29/23 14:32 06/29/23 14:46 Temperature Pulse Rate 107 H 126 H 109 H Pulse Rate [Pulse Oximeter] Respiratory Rate Blood Pressure 100/84 Blood Pressure [Le ft Upper Arm] Pulse Oximetry 96 97 95 Oxygen Delivery Me thod 06/29/23 15:01 06/29/23 15:02 06/29/23 15:03 Temperature Pulse Rate 104 H 142 H Pulse Rate [Pulse Oximeter] Respiratory Rate 17 15 16 Blood Pressure 112/84 Blood Pressure [Le ft Upper Arm] Pulse Oximetry 96 [facility] 15:10 06/29/23 15:12 06/29/23 15:15 Temperature Pulse Rate 113 H 100 120 H Pulse Rate [Pulse Oximeter] Respiratory Rate 18 22 Blood Pressure 129/103 H 92/67 Blood Pressure [Le ft Upper Arm] Pulse Oximetry 98 97 94 Oxygen Delivery Me od 06/29/23 15:17 Temperature Pulse Rate 107 H Pulse Rate [Pulse Oximeter] Respiratory Rate 17 Blood Pressure 102/75 Blood Pressure [Le ft Upper Arm] Pulse Oximetry 96 Oxygen Delivery Me thod Documenting provider has reviewed patient's vital signs: yes Course Course ED Course: Patient had an EKG on arrival which shows atrial fibrillation with rapid ventricular response ventricular rate of 154 beats per minute. She does have significant ST depression diffusely and some ST elevation noted in AVR but does not have any chest pain or pressure, initial troponin was 0.01. Discussed options with her, in terms of rate control and observation for a bit verses cardioversion. She would like to avoid cardioversion if possible. She says she typically goes back into sinus rhythm within a few hours. She came in today because she was not sure if she was supposed to be seen every time that she went into atrial fibrillation and she was not sure if it was okay to take an extra diltiazem. For now will try some IV diltiazem, check some basic labs, and observe for a bit. If she is not converting then would recommend cardioversion. Patient had 10 mg of IV diltiazem followed by 20 mg of IV diltiazem. She would have brief decrease in her heart rate to about 100 but then rate increased again to the 140s to 160. She continues to feel well without significant symptoms however rate is not controlled and I did recommend cardioversion. Risks and benefits were discussed and consent was signed. Procedure note: Dr. Rivera provided sedation for the procedure, please see his addendum for details. She was given propofol with good effect, tolerated this well without hypoxia or hypercapnia. She was cardioverted at 200 joules, synchronized. She had brief return to sinus rhythm with a rate in the 60s for perhaps 10-15 beats and then went back into a rapid atrial fibrillation with a rate around 140. I tried a 2nd cardioversion and again had a brief period in sinus with a controlled rate followed by return to atrial fibrillation with rapid ventricular rate. She awakened without difficulty, has no complaints. I did talk with Dr. Saavedra who was on-call for Cardiology at [facility]. We discussed options and he recommended using amiodarone for now given that the IV diltiazem did not seem to provide significant benefit. Consider another cardioversion if she does not convert over the next 24 hours. He would recommend EP study and stress testing as an outpatient. Recommended against other antiarrhythmics given that she has not had a workup for ischemia. Plan will be admission to the hospitalist, case discussed with Dr. Amos who has accepted the patient for admission. Vital Signs Vital signs: Initial Vital Signs Temperature 97.3 F L 06/29/23 10:40 Temperature Source Temporal Artery Scan 06/29/23 10:40 Pulse Rate 146 H 06/29/23 10:40 Pulse Rhythm Irregular 06/29/23 10:40 Respiratory Rate 20 06/29/23 10:40 Blood Pressure 139/93 H 06/29/23 10:40 Blood Pressure Mean 108 H 06/29/23 10:40 Blood Pressure Position Supine 06/29/23 10:40 Pulse Oximetry 97 06/29/23 10:40 Oxygen Delivery Method Room Air 06/29/23 10:40 Vital Signs Temperature 97.3 F L 06/29/23 10:40 Pulse Rate 146 H 06/29/23 10:40 Respiratory Rate 20 06/29/23 10:40 Blood Pressure 139/93 H 06/29/23 10:40 Pulse Oximetry 97 06/29/23 10:40 Oxygen Delivery Method Room Air 06/29/23 10:40 Temperature 97.3 F L 06/29/23 10:40 Pulse Rate 107 H 06/29/23 15:17 Respiratory Rate 17 06/29/23 15:17 Blood Pressure 102/75 06/29/23 15:17 Pulse Oximetry 96 06/29/23 15:17 Oxygen Delivery Method Room Air 06/29/23 10:40 Medications Administered Medications: Discontinued Medications Generic Name Dose Route Start Last Admin Trade Name Freq PRN Reason Stop Dose Admin Diltiazem HCl 10 mg 06/29/23 11:16 06/29/23 11:43 Diltiazem 5 Mg/Ml Inj IVP 06/29/23 11:17 10 mg ONCE ONE Administration Diltiazem HCl 20 mg 06/29/23 12:56 06/29/23 13:09 Diltiazem 5 Mg/Ml Inj IVP 06/29/23 12:57 20 mg ONCE ONE Administration Sodium Chloride 500 mls @ 500 mls/hr 06/29/23 11:16 06/29/23 12:16 0.9 % Sodium Chloride 500 Ml IV 06/29/23 12:15 Infused .Q1H ONE Infusion Medical Decision Making Lab Data Labs: Lab Results 06/29/23 06/29/23 Range/Units 11:04 11:17 WBC 5.90 (4.50-11.00) K/uL RBC 5.17 (4.00-5.20) m/uL Hgb 14.8 (12.0-16.0) gm/dL Hct 45.2 (33.0-51.0) % MCV 87 (80-100) fL MCH 29 (26-34) pg MCHC 33 (32-36) gm/dL RDW Coeff of [place] 13.4 (11.5-15.5) % Plt Count 216 (140-440) K/uL Neut % (Auto) 53.7 (42.0-72.0) % Lymph % (Auto) 36.8 (20-44) % [place] % (Auto) 6.6 (0.0-11.0) % Eos % (Auto) 2.4 (0.0-7.0) % Baso % (Auto) 0.5 (0.0-3.0) % Neut # (Auto) 3.17 (1.7-7.0) K/uL Lymph # (Auto) 2.17 (0.90-2.90) K/uL [place] # (Auto) 0.40 (0.00-0.90) K/UL Eos # (Auto) 0.14 (0.00-0.50) K/uL Baso # (Auto) 0.03 (0.00-0.30) K/uL Abs Immat Gran (auto) 0.00 (0.00-0.30) K/uL Imm/Tot Granulo (auto) 0.0 % Sodium 142 (135-149) mmol/L Potassium 3.3 L (3.6-5.1) mmol/L Chloride 104 (96-114) mmol/L Carbon Dioxide 28 (20-32) mmol/L Anion Gap 10 (7-15) mEq/L BUN 20 (7-30) mg/dL Creatinine 0.8 (0.5-1.5) mg/dL Estimated Creat Clear 49.00 Estimated GFR 79 ml/min Glucose 112 (60-115) mg/dL Calcium 10.4 (8.4-10.6) mg/dL Magnesium 2.2 (1.5-2.6) mg/dL POC Troponin I 0.01 (0.01-0.04) ng/ml Critical Care Time Critical Care Time Total Critical Care Time in Minutes: 60 Discharge Plan Discharge Clinical Impression: Atrial fibrillation Patient Disposition: Admitted As Observation Condition: Stable
[2023-06-29 11:35] LABS: Basophils Absolute Auto 0.03 K/uL (0.00-0.30); Basophils Percent Auto 0.5 % (0.0-3.0); Eosinophils Absolute Auto 0.14 K/uL (0.00-0.50); Eosinophils Percent Auto 2.4 % (0.0-7.0); Hematocrit 45.2 % (33.0-51.0); Hemoglobin* 14.8 gm/dL (12.0-16.0); Lymphocytes Absolute Auto 2.17 K/uL (0.90-2.90); Lymphocytes Percent Auto 36.8 % (20-44); Mean Corpuscular HGB Conc 33 gm/dL (32-36); Mean Corpuscular Hemoglobin 29 pg (26-34); Mean Corpuscular Volume 87 fL (80-100); Monocytes Percent Auto 6.6 % (0.0-11.0); Neutrophils Absolute Auto 3.17 K/uL (1.7-7.0); Neutrophils Percent Auto 53.7 % (42.0-72.0); Platelet Count* 216 K/uL (140-440); RDW Coefficient of Variation % 13.4 % (11.5-15.5); Red Blood Count 5.17 m/uL (4.00-5.20)
[2023-06-29 11:41] LABS: Chloride* 104 mmol/L (96-114); Potassium* 3.3 mmol/L (3.6-5.1); Sodium* 142 mmol/L (135-149)
[2023-06-29] MEDS: dilTIAZem 5 MG/ML inj 10 MG IVP (11:43)
[2023-06-29 11:44] LABS: Anion Gap 10 mEq/L (7-15); Blood Urea Nitrogen* 20 mg/dL (7-30); Carbon Dioxide* 28 mmol/L (20-32); Creatinine* 0.8 mg/dL (0.5-1.5); Estimated Glomerular Filt Rate 79 ml/min
[2023-06-29 11:45] LABS: Calcium* 10.4 mg/dL (8.4-10.6); Glucose* 112 mg/dL (60-115); Magnesium* 2.2 mg/dL (1.5-2.6)
[2023-06-29 11:46] LABS: Slide Review Reflex No
[2023-06-29] MEDS: dilTIAZem 5 MG/ML inj 20 MG IVP (13:09)
[2023-06-29] MEDS: PROPOFOL 10 MG/ML INJ 200 MG IVP (15:08)
[2023-06-29] MEDS: AMIODARONE 50 MG/ML inj 150 MG in 5 % DEXTROSE 100 ML 100 ML 618 MG IVPB (16:13)
--- NOTE | 2023-06-29 17:21 | ED.NURSE ---
report given to ad in M/S
[2023-06-29] MEDS: POTASSIUM BICARB 25 MEQ EFFERVESCENT TAB 50 MEQ PO (17:59)
[2023-06-29] MEDS: METOPROLOL TARTRATE 1 MG/ML inj 5 MG IVP (18:00)
--- NOTE | 2023-06-29 19:24 | PC.NURSE ---
Patient up to floor at 1750. Alert and oriented x4. SBA, 96% on RA. Reg diet, will be NPO at midnight in case a third Cardio Vert needs to be administered. Patient has two IV's, 20G in in L AC is SL, 18G in R AC is patent and has Amiodarone running at 33mls/hr. Patient tolerating well. Patient in A-fib, HR tachy. Patient received Metoprolol IV at 1800, tolerated well. Patient converted to Sinus Gama at 1900. notified. gave verbal to continue patient on Amiodarone drip until morning. Report given to LIZETH Bloom.
--- NOTE | 2023-06-29 19:46 | PC.NURSE ---
Pt allowed to take Home Ada ontiveros MD @ 1900 and 2100 dosage not given. Pt converted to Sinus Rhythm @ 1900. Dr ordered to remain on current rate of Amioderone ggt @33ml/hr. Change to 17ml/hr @ 2250. Run until morning.
--- NOTE | 2023-06-29 20:32 | P.IMHP_ITS ---
Hospitalist- H&P: KILO History of Present Illness Date Seen: 06/29/23 Chief complaint: Heart palpitations Narrative: César Griffith is a 72 year old female with paroxysmal atrial fibrillation admitted through the emergency department with atrial fibrillation with rapid ventricular response. Patient reports that starting about 9:00 a.m. today she could feel her heart beating fast and irregularly. She did not have chest pain. She was otherwise feeling well. Because of the persistence she came to the emergency room for evaluation. She reports that similar event occurred in April and at that time she had evaluation showing it was atrial fibrillation with rapid ventricular response. She was started on diltiazem and apixaban. Since then she has been generally doing well. The diltiazem 120 mg daily causes a bradycardia with a heart rate in the low 50s. Echocardiogram done at that time was normal. She reports that for about 10 years she has been having episodes like this. In the past year she has had episodes about twice a month where she feels her heart beat fast and irregular. These last 3-5 hours and spontaneously resolved. Until April of this year she had never had a formal diagnosis of atrial fibrillation. She has no other history of heart disease. No known coronary disease. In the emergency department they attempted cardioversion twice. In both cases she had brief episodes of sinus rhythm and quickly reverted back to AFib with RVR. After consultation with Cardiology was recommended she be loaded with amiodarone, and if she did not convert with amiodarone, a repeat cardioversion tomorrow after loading with amiodarone was recommended. Cardiology also wanted to have an assessment for ischemia with a stress test. She had normal thyroid testing recently. She drinks alcohol about 5 per week. Review of Systems Narrative: Other than her awareness of tachy palpitations she reports feeling fine [facility] Medical History (Updated 06/29/23 @ 20:43 by Jim Amos MD) Atrial fibrillation with rapid ventricular response ?I48.91 - Unspecified atrial fibrillation (ICD-10) Paroxysmal atrial fibrillation ?I48.0 - Paroxysmal atrial fibrillation (ICD-10) Irritable bowel syndrome ?K58.9 - Irritable bowel syndrome without diarrhea (ICD-10) Hyperlipidemia ?E78.5 - Hyperlipidemia, unspecified (ICD-10) Carpal tunnel syndrome ?G56.00 - Carpal tunnel syndrome, unspecified upper limb (ICD-10) Surgical History History of total knee replacement ?Z96.659 - Presence of unspecified artificial knee joint (ICD-10) History of dilation and curettage ?Z98.890 - Other specified postprocedural states (ICD-10) Family History (Updated 06/29/23 @ 20:41 by Jim Amos MD) Father Alzheimers disease Social History (Updated 06/29/23 @ 20:41 by Jim Amos MD) Narrative: She lives with her marcelo. He is healthcare power of bankruptcy attorney. She drinks about 5 alcoholic beverages per week. She does not smoke. Code status is full. is healthcare power of bankruptcy attorney. What is your current living situation?: I presently have a place to live Problems where you live: no known problems Problems where you live details: no known problems In the past 12 months, utilities in danger of being shut off: no In past 12 months, lack of transportation kept you from medical appts, meetings, work, or getting things needed for daily living: no In the past 12 mos, have been you worried that your food would run out before you had money to buy more?: never true In the past 12 mos, the food you bought just didn't last and you didn't have money to buy more?: never true Highest level of school completed/degree received: Master's degree Smoking Status: Never smoker Do you use any of these nicotine containing products: None Second hand tobacco smoke exposure: No How often do you have a drink containing alcohol: never How often do you have six or more drinks on one occasion: Never AUDIT-C Alcohol total score: 0 Non-prescribed substance use: denies use Caffeine: Yes How often does anyone, including family, friends and others, physically hurt you : never How often does anyone, including family, friends and others, insult or talk down to you: never How often does anyone, including family, friends and others, threaten you with harm: never How often does anyone, including family, friends and others, scream or curse at you: never Little interest or pleasure in doing things: not at all Feeling down, depressed, or hopeless: not at all service: No Meds Home Medications and Allergies Home Medications Medication Instructions Recorded Confirmed Type calcium carbonate 600 mg calcium 600 mg PO DAILY 03/16/22 06/29/23 History (1,500 mg) tablet cholecalciferol (vitamin D3) 50 50 mcg PO DAILY 03/16/22 06/29/23 History mcg (2,000 unit) capsule magnesium oxide 500 mg capsule 250 mg PO DAILY 03/16/22 06/29/23 History rusurpnmakwa-uhnrmaxa-qgythc tablet 1 tab PO DAILY 03/16/22 06/29/23 History B-complex with vitamin C 1 cap PO DAILY 06/20/22 06/29/23 History lutein extract 15 mg-zeaxanthin 1 cap PO DAILY 04/27/23 06/29/23 History extract 0.7 mg capsule omega 6-wdx-wye-fish oil 1,000 mg 2 cap PO DAILY 04/27/23 06/29/23 History (120 mg-180 mg) capsule (Fish Oil) chlorthalidone 25 mg tablet 12.5 mg PO DAILY 06/29/23 06/29/23 History rosuvastatin 20 mg tablet 20 mg PO DAILY 06/29/23 06/29/23 History Allergies Allergy/AdvReac Type Severity Reaction Status Date / Time shellfish derived Allergy Verified 06/29/23 11:23 Exam Narrative: Exam Narrative: She is alert and appears in no distress. Eyes normal. Oropharynx normal. Neck is supple without mass or adenopathy. No jugular venous distension. Respirations are clear to auscultation. Cardiovascular: S1, S2, irregular tachycardia. No murmur gallop or rub. Abdomen: Bowel sounds active. Abdomen is soft without tenderness or mass. Extremities with good perfusion. Intact pulses. No edema Const: Vital Signs, click to edit/add: Vital Signs - 24 hr 06/29/23 10:40 06/29/23 10:48 06/29/23 11:03 Temperature 97.3 F L Pulse Rate 148 H Pulse Rate [Bilate ral Radial] Pulse Rate [Pulse Oximeter] 146 H Respiratory Rate 20 Blood Pressure 143/128 H Blood Pressure [Le ft Arm] Blood Pressure [Le ft Upper Arm] 139/93 H Pulse Oximetry 97 93 Oxygen Delivery Me thod Room Air 06/29/23 11:30 06/29/23 11:35 06/29/23 11:37 Temperature Pulse Rate 135 H 132 H 120 H Pulse Rate [Bilate ral Radial] Pulse Rate [Pulse Oximeter] Respiratory Rate Blood Pressure 129/109 H Blood Pressure [Le ft Arm] Blood Pressure [Le ft Upper Arm] Pulse Oximetry 96 96 [facility] 11:38 06/29/23 11:39 06/29/23 11:45 Temperature Pulse Rate 118 H 117 H 101 H Pulse Rate [Bilate ral Radial] Pulse Rate [Pulse Oximeter] Respiratory Rate Blood Pressure 131/94 H Blood Pressure [Le ft Arm] Blood Pressure [Le ft Upper Arm] Pulse Oximetry 94 95 95 [facility] 06/29/23 12:02 06/29/23 12:04 06/29/23 12:05 Temperature Pulse Rate 118 H 116 H 112 H Pulse Rate [Bilate ral Radial] Pulse Rate [Pulse Oximeter] Respiratory Rate Blood Pressure 122/101 H Blood Pressure [Le ft Arm] Blood Pressure [Le ft Upper Arm] Pulse Oximetry 96 95 94 [facility] 06/29/23 12:15 06/29/23 12:30 06/29/23 12:31 Temperature Pulse Rate 110 H 103 H 130 H Pulse Rate [Bilate ral Radial] Pulse Rate [Pulse Oximeter] Respiratory Rate Blood Pressure 130/109 H Blood Pressure [Le ft Arm] Blood Pressure [Le ft Upper Arm] Pulse Oximetry 93 94 95 [facility] 06/29/23 12:45 06/29/23 13:00 06/29/23 13:02 Temperature Pulse Rate 127 H 114 H 92 Pulse Rate [Bilate ral Radial] Pulse Rate [Pulse Oximeter] Respiratory Rate Blood Pressure 117/88 Blood Pressure [Le ft Arm] Blood Pressure [Le ft Upper Arm] Pulse Oximetry 96 94 95 [facility] 06/29/23 13:03 06/29/23 13:09 06/29/23 13:15 Temperature Pulse Rate 71 108 H 108 H Pulse Rate [Bilate ral Radial] Pulse Rate [Pulse Oximeter] Respiratory Rate Blood Pressure 122/59 L Blood Pressure [Le ft Arm] Blood Pressure [Le ft Upper Arm] Pulse Oximetry 94 96 96 [facility] 06/29/23 13:30 06/29/23 13:32 06/29/23 13:45 Temperature Pulse Rate 118 H 118 H 88 Pulse Rate [Bilate ral Radial] Pulse Rate [Pulse Oximeter] Respiratory Rate Blood Pressure 118/68 Blood Pressure [Le ft Arm] Blood Pressure [Le ft Upper Arm] Pulse Oximetry 95 95 96 [facility] 06/29/23 14:00 06/29/23 14:02 06/29/23 14:15 Temperature Pulse Rate 87 104 H 117 H Pulse Rate [Bilate ral Radial] Pulse Rate [Pulse Oximeter] Respiratory Rate Blood Pressure 95/81 Blood Pressure [Le ft Arm] Blood Pressure [Le ft Upper Arm] Pulse Oximetry 98 97 95 [facility] 06/29/23 14:30 06/29/23 14:32 06/29/23 14:46 Temperature Pulse Rate 107 H 126 H 109 H Pulse Rate [Bilate ral Radial] Pulse Rate [Pulse Oximeter] Respiratory Rate Blood Pressure 100/84 Blood Pressure [Le ft Arm] Blood Pressure [Le ft Upper Arm] Pulse Oximetry 96 97 95 [facility] 06/29/23 15:01 06/29/23 15:02 06/29/23 15:03 Temperature Pulse Rate 104 H 142 H Pulse Rate [Bilate ral Radial] Pulse Rate [Pulse Oximeter] Respiratory Rate 17 15 16 Blood Pressure 112/84 Blood Pressure [Le ft Arm] Blood Pressure [Le ft Upper Arm] Pulse Oximetry 96 96 [facility] 06/29/23 15:10 06/29/23 15:12 06/29/23 15:15 Temperature Pulse Rate 113 H 100 120 H Pulse Rate [Bilate ral Radial] Pulse Rate [Pulse Oximeter] Respiratory Rate 18 22 Blood Pressure 129/103 H 92/67 Blood Pressure [Le ft Arm] Blood Pressure [Le ft Upper Arm] Pulse Oximetry 98 97 94 [facility] 06/29/23 15:17 06/29/23 15:18 06/29/23 15:22 Temperature Pulse Rate 107 H 110 H 102 H Pulse Rate [Bilate ral Radial] Pulse Rate [Pulse Oximeter] Respiratory Rate 17 17 15 Blood Pressure 102/75 106/88 Blood Pressure [Le ft Arm] Blood Pressure [Le ft Upper Arm] Pulse Oximetry 96 96 96 [facility] 06/[facility]/23 15:27 06/29/23 15:30 06/29/23 15:33 Temperature Pulse Rate 115 H 130 H 107 H Pulse Rate [Bilate ral Radial] Pulse Rate [Pulse Oximeter] Respiratory Rate Blood Pressure 97/82 122/79 Blood Pressure [Le ft Arm] Blood Pressure [Le ft Upper Arm] Pulse Oximetry 94 93 96 Oxygen Delivery Me thod 06/29/23 15:45 06/29/23 16:00 06/29/23 16:02 Temperature Pulse Rate 130 H 131 H 144 H Pulse Rate [Bilate ral Radial] Pulse Rate [Pulse Oximeter] Respiratory Rate Blood Pressure 122/108 H Blood Pressure [Le ft Arm] Blood Pressure [Le ft Upper Arm] Pulse Oximetry 96 96 97 Oxygen Delivery Me thod 06/29/23 16:15 06/29/23 18:14 06/29/23 18:14 Temperature 99.0 F Pulse Rate 104 H Pulse Rate [Bilate ral Radial] Pulse Rate [Pulse Oximeter] Respiratory Rate 16 16 Blood Pressure Blood Pressure [Le ft Arm] 105/66 Blood Pressure [Le ft Upper Arm] Pulse Oximetry 96 96 96 Oxygen Delivery Me thod Room Air Room Air 06/29/23 19:27 Temperature 97.6 F Pulse Rate Pulse Rate [Bilate ral Radial] 58 L Pulse Rate [Pulse Oximeter] Respiratory Rate 16 Blood Pressure Blood Pressure [Le ft Arm] 137/58 L Blood Pressure [Le ft Upper Arm] Pulse Oximetry 95 Oxygen Delivery Me thod Room Air Documenting provider has reviewed patient's vital signs: yes Hospitalist - H&P: Result Labs Labs: Short CBC 06/29/23 Range/Units 11:04 WBC 5.90 (4.50-11.00) K/uL Hgb 14.8 (12.0-16.0) gm/dL Hct 45.2 (33.0-51.0) % Plt Count 216 (140-440) K/uL BMP 06/29/23 11:04 Sodium 142 Potassium 3.3 L Chloride 104 Carbon Dioxide 28 BUN 20 Creatinine 0.8 Glucose 112 Calcium 10.4 Assessment and Plan Assessment and plan (1) Atrial fibrillation with rapid ventricular response: Status: Acute (2) Paroxysmal atrial fibrillation: Problem comment: apixaban and diltiazem started 05/13 Status: Acute (3) Essential hypertension: Problem comment: Medication start 2019 Status: Acute Plan Patient is admitted to the hospital for rhythm control and rate control of AFib. Part way into the amiodarone infusion she did convert into normal sinus bradycardia rhythm. If she remains in sinus rhythm plan discharge home tomorrow with outpatient stress testing and ongoing amiodarone and Cardiology follow-up. With amiodarone may not need diltiazem. Total time spent today is 75 minutes, 50 minutes in coordination of care and discussing with patient, and other providers management of AFib with RVR
[2023-06-29] MEDS: SODIUM CHLORIDE 0.9 % (FLUSH) 10 ML SYRINGE 5 ML IVF (21:10)
[2023-06-30] VITALS (11 sets, daily range): BP systolic 113–149; BP diastolic 62–76; PULSE 51–72; RESP 16–18; TEMP 36.6–37; O2SAT 94–99
--- NOTE | 2023-06-30 07:21 | PC.NURSE ---
SHIFT NOTE: Pt pleasant and cooperative, A&O. Afebrile. Oxygen saturations >90% on RA. Tele reads sinus chel. HR initially 48-51, Dr. Amos updated and order received to pause drip for one hour and resume after one hour if HR >50. HR was low 50's after one hour and drip was resumed at 17/hr. HR once again was upper 40's around 0515, Dr. Ramos updated and order received to pause the drip for one hour. Drip paused at 0530 and HR was in the low to mid 50's after the one hour pause, drip resumed again at 0630 at 17ml/hr. Pt otherwise denies pain, SOB, CP, and N/V. Up independent in room.
[2023-06-30] MEDS: APIXABAN 5 MG TABLET PO (08:23)
[2023-06-30] MEDS: AMIODARONE 200 MG TABLET 400 MG PO (08:23)
[2023-06-30] MEDS: CHLORTHALIDONE 25 MG TABLET 12.5 MG PO (08:23)
--- NOTE | 2023-06-30 12:54 | PC.NURSE ---
Telemetry initially indicated sinus bradycardia. Eval by Dr. Cam. Amiodarone gtt 17ml/hr discontinued at 0923 after loading dose of amiodarone 400mg po given at 0823. VS stable. Pt removed from unit status to med/surg floor care at 11:29 am. Pt up to perform ADLS. Tele now indicates NSR w/o ectopy. Plan for d/c to home. Holter Monitor to be placed by waste handling technician who is currently explaining procedure at bedside. Two AC IV sites discontinued and tele removed in preparation for d/c.
--- NOTE | 2023-06-30 14:05 | PC.NURSE ---
Pt and spouse Terry verbalized understanding of d/c diagnosis, new meds, home meds, f/up appts and sx to report urgently to physician. Ambulatory d/c to home w/personal belongings and spouse as transportation at 12:58.
--- NOTE | 2023-06-30 14:59 | P.DS_ITS ---
DS: Providers Provider Date Seen: 06/30/23 Date of admission: 06/30/23 09:11 Primary care physician: Tiana Monteiro MD Admitting Clinician: Jim Amos MD Attending Phys[facility] on discharge: [facility]: 06/30/23 DS: Diagnosis Discharge Diagnosis (1) Atrial fibrillation with rapid ventricular response: Status: Acute Problem details: Resolved and converted on 06/29/23 Transition from IV to oral amiodarone. 400 mg of amiodarone p.o. b.i.d. for 2 weeks then transition to 400 mg q.day until seen by Cardiology Holter monitor placed Sleep study scheduled Echo done in 05/13 reviewed Rescue plan with p.r.n. metoprolol outlined (2) Paroxysmal atrial fibrillation: Status: Acute Problem details: On chronic anticoagulation with apixaban Now on amiodarone for rhythm and rate control Rescue metoprolol plan in place As in 1. (3) Essential hypertension: Status: Acute Problem details: Medication start 2019 DS: Summary Hospital Course Hospital Course: FINAL DIAGNOSIS/FOLLOW UP ISSUES: 1. Holter monitor, 48 hours, placed at discharge 2. Cardiology consult placed 3. PCP follow-up for rate and rhythm check BRIEF HOSPITAL COURSE: Patient was admitted for overnight. Synopsis of acute inpatient issues are outlined above. Chronic medical conditions with notable findings outlined above. DISCHARGE MEDICATIONS: See Reconciled list - SIGNIFICANT CHANGES: We held diltiazem Initiating oral amiodarone Continuing apixaban P.r.n. metoprolol rescue Specific instructions to the patient and follow-up are outlined below. REVIEW OF SYSTEMS No new chest pain or dyspnea Pain controlled No voiding difficulties Tolerating diet challenge PHYSICAL EXAM: CONSTITUTIONAL: Outgoing. No acute distress. VITAL SIGNS: see record. HEENT: Normocephalic, atraumatic. PERRL, EOMI, conjunctivae pink, no scleral icterus. Ears and nose externally normal. Pharynx normal. NECK: No JVD. No carotid bruit, no thyromegaly, no adenopathy. CHEST: Clear to auscultation bilaterally. HEART: S1 and S2 normal. Edema ABDOMEN: Soft, nontender. Normal bowel sounds. MUSCULOSKELETAL: No gross joint deformity or swelling. NEURO: Cranial nerves intact. Grossly intact. No asymmetric findings. SKIN: No rashes, petechiae, concerning changes PSYCHIATRIC: Mood euthymic. DISPOSITION: Home with Time spent on discharge 37 minutes. Time Spent with Patient Time attestation: Total time spent providing and/or coordinating discharge services: Exam Const: Vital Signs, click to edit/add: Vital Signs - 24 hr 06/29/23 15:01 06/29/23 15:02 06/29/23 15:03 Temperature Pulse Rate 104 H 142 H Pulse Rate [Bilate ral Radial] Pulse Rate [Left A pical] Pulse Rate [Left R adial] Respiratory Rate 17 15 16 Blood Pressure 112/84 Blood Pressure [Le ft Arm] Pulse Oximetry 96 [facility] 15:10 06/29/23 15:12 06/29/23 15:15 Temperature Pulse Rate 113 H 100 120 H Pulse Rate [Bilate ral Radial] Pulse Rate [Left A pical] Pulse Rate [Left R adial] Respiratory Rate 18 22 Blood Pressure 129/103 H 92/67 Blood Pressure [Le ft Arm] Pulse Oximetry 98 97 94 [facility] 06/29/23 15:17 06/29/23 15:18 06/29/23 15:22 Temperature Pulse Rate 107 H 110 H 102 H Pulse Rate [Bilate ral Radial] Pulse Rate [Left A pical] Pulse Rate [Left R adial] Respiratory Rate 17 17 15 Blood Pressure 102/75 106/88 Blood Pressure [Le ft Arm] Pulse Oximetry 96 96 96 [facility] 06/29/23 15:27 06/29/23 15:30 06/29/23 15:33 Temperature Pulse Rate 115 H 130 H 107 H Pulse Rate [Bilate ral Radial] Pulse Rate [Left A pical] Pulse Rate [Left R adial] Respiratory Rate Blood Pressure 97/82 122/79 Blood Pressure [Le ft Arm] Pulse Oximetry 94 93 96 [facility] 06/29/23 15:45 06/29/23 16:00 06/29/23 16:02 Temperature Pulse Rate 130 H 131 H 144 H Pulse Rate [Bilate ral Radial] Pulse Rate [Left A pical] Pulse Rate [Left R adial] Respiratory Rate Blood Pressure 122/108 H Blood Pressure [Le ft Arm] Pulse Oximetry 96 96 97 [facility] 06/29/23 16:15 06/29/23 18:14 06/29/23 18:14 Temperature 99.0 F Pulse Rate 104 H Pulse Rate [Bilate ral Radial] Pulse Rate [Left A pical] Pulse Rate [Left R adial] Respiratory Rate 16 16 Blood Pressure Blood Pressure [Le ft Arm] 105/66 Pulse Oximetry 96 96 96 Oxygen Delivery [facility] Room Air Room Air 06/29/23 19:27 06/29/23 23:00 06/29/23 23:00 Temperature 97.6 F 97.8 F Pulse Rate Pulse Rate [Bilate ral Radial] 58 L 50 L 50 L Pulse Rate [Left A pical] Pulse Rate [Left R adial] Respiratory Rate 16 16 Blood Pressure Blood Pressure [Le ft Arm] 137/58 L 125/66 Pulse Oximetry 95 98 Oxygen Delivery [facility] Room Air Room Air 06/29/23 23:34 06/30/23 02:00 06/30/23 03:00 Temperature 97.8 F Pulse Rate 51 L 60 Pulse Rate [Bilate ral Radial] 53 L Pulse Rate [Left A pical] Pulse Rate [Left R adial] Respiratory Rate 16 Blood Pressure Blood Pressure [Le ft Arm] 121/62 Pulse Oximetry 99 Oxygen Delivery [facility] Room Air 06/30/23 04:00 06/30/23 06:00 06/30/23 07:12 Temperature 98.6 F 98.6 F Pulse Rate 51 L Pulse Rate [Bilate ral Radial] 53 L 54 L Pulse Rate [Left A pical] Pulse Rate [Left R adial] Respiratory Rate 16 18 Blood Pressure Blood Pressure [Le ft Arm] 113/63 118/73 Pulse Oximetry 94 97 Oxygen Delivery [facility] Room Air Room Air 06/30/23 07:21 06/30/23 07:35 06/30/23 09:35 Temperature 98.3 F 98 F Pulse Rate Pulse Rate [Bilate ral Radial] Pulse Rate [Left A pical] 56 L 60 Pulse Rate [Left R adial] Respiratory Rate 16 16 Blood Pressure Blood Pressure [Le ft Arm] 134/72 135/70 Pulse Oximetry 96 96 94 Oxygen Delivery [facility] Room Air Room Air 06/30/23 10:25 06/30/23 11:20 06/30/23 11:44 Temperature 98.2 F 98.3 F Pulse Rate 72 Pulse Rate [Bilate ral Radial] Pulse Rate [Left A pical] 57 L Pulse Rate [Left R adial] 55 L 57 L Respiratory Rate 16 16 Blood Pressure Blood Pressure [Le ft Arm] 149/76 H 129/66 Pulse Oximetry 96 97 Oxygen Delivery Me thod Room Air Room Air Discharge Plan Discharge Disposition: Home, Self-Care Date of Admission: 06/30/23 09:11 Primary Care Provider: Tiana Monteiro Condition: Stable Anticipated Discharge Date/Time: 06/30/23 15:00 Discharge Medications: New amiodarone 200 mg Tablet 400 mg PO BID Qty: 60 0RF Rx Instructions: Take one tablet twice daily for 2 weeks (last twice a day dose would be 07/14/23), then take one tablet each morning metoprolol tartrate 25 mg tablet 25 mg PO DAILY PRNQty: 30 0RF Rx Instructions: Confirm you are in AFIB. If rate is >120 and your systolic blood pressure (top number) is >110 then take 1 tab of metoprolol. May repeat with same parameters 1 hour later if needed. Continued B-complex with vitamin C Capsule 1 cap PO DAILY lutein extract-zeaxanthin ext 15-0.7 mg capsule 1 cap PO DAILY Eliquis 5 mg tablet 5 mg PO BID Qty: 180 3RF chlorthalidone 25 mg tablet 12.5 mg PO DAILY rosuvastatin 20 mg tablet 20 mg PO DAILY magnesium oxide 500 mg capsule 250 mg PO DAILY calcium carbonate 600 mg calcium (1,500 mg) tablet 600 mg PO DAILY ytgebqjitaby-wyqzeber-jjtwga Tablet 1 tab PO DAILY cholecalciferol (vitamin D3) 50 mcg (2,000 unit) capsule 50 mcg PO DAILY omega 5-rfo-tmq-fish oil [Fish Oil] 1,000 mg (120 mg-180 mg) capsule 2 cap PO DAILY Discontinued diltiazem HCl [Cardizem CD] 120 mg capsule,extended release 24hr 120 mg PO Q24H Qty: 90 3RF Discharge Orders: Discharge Order (Routine); Ordered 06/30/23 Ordered By: Stephanie Cam Patient Education: Metoprolol (By mouth), Amiodarone (By mouth), A-fib (Atrial Fibrillation) (DC) Additional Instructions: 1. Keep sleep study appointment 2. Meet with cardiology to discuss ischemia (stress test) suggestion 3. Take amiodarone twice a day for two weeks, then just daily 4. If you enter into AFIB with a heart rate >120 AND you have a decent blood pressure (means systolic - top number) >110 then take one tablet of metoprolol. It doesn't matter when you took the amidarone. 5. Follow the directions for returning the Holter Monitor that you are given. 6. I love that you exercise and take life by storm. This is not causing your Atrial Fibrillation. Always use common sense with how you are feeling. Activity Level: Activity as Tolerated Discharge Diet: Regular Follow Up Appointments: [facility] [Provider Group] - 07/17/23 2:00 pm ([facility] with Dr. Calderón. ) Tiana Monteiro MD [Primary Care Provider] - 07/11/23 4:00 pm ([facility] for follow-up.) Forms: [employer] Info Instructions
== END 2023-06-30 13:58 | disposition home or self-care (01) | DRG 310 ==
LOC: ED 15:55 → MEDSURG 17:38
PROVIDERS: Admitting Provider Family Medicine; Emergency Provider Emergency Medicine; PCP Internal Medicine; Visit Provider Family Medicine
DX: I48.20 Chronic atrial fibrillation, unspecified (principal); Z79.01 Long term (current) use of anticoagulants; I48.0 Paroxysmal atrial fibrillation; E78.5 Hyperlipidemia, unspecified
CPT/HCPCS: 36415; 80048; 83735; 84484; 85025; 92960; 93005; 93225; 93226; 94761; 99156; 99284; 99291; G0378; A9270; J0282; J2704; J7120

== ENCOUNTER 2023-07-04 20:53 | Outpatient (CLI) | payer MEDICARE, SELFPAY | END 2023-07-04 20:54 | disposition home or self-care (01) | PROVIDERS: PCP Internal Medicine; Visit Provider Internal Medicine | DX: G47.33 Obstructive sleep apnea (adult) (pediatric) (principal) | CPT/HCPCS: 95810 ==

== ENCOUNTER 2023-08-17 20:13 | Outpatient (CLI) | payer MEDICARE, SELFPAY | END 2023-08-17 20:14 | disposition home or self-care (01) | PROVIDERS: PCP Internal Medicine; Visit Provider Family Medicine | DX: G47.33 Obstructive sleep apnea (adult) (pediatric) (principal); R09.02 Hypoxemia | CPT/HCPCS: 95811 ==

== ENCOUNTER 2023-10-06 06:50 | Outpatient (CLI) | payer MEDICARE, SELFPAY ==
--- OUTSIDE RECORDS SUMMARY | 2023-10-06 06:52 | XMS_ITS | Clinical Summary ---
Author Name Unknown Organization [employer] [facility] [employer] Address [place], [place] [address] Care Team Providers Care Skid Machine Operator Name Role Phone Mitch Soriano MD Primary Care Provider [phone] Allergies Active Allergy Reactions Criticality Noted Date Comments Shellfish Derived Diarrhea,GI Upset 04/07/2021 Medications Medication Sig Dispensed Refills Start Date End Date Status rosuvastatin (CRESTOR) 20 mg tablet Take 20 mg by mouth once daily. 0 04/05/2021 Active chlorthalidone (HYGROTON) 25 mg tablet Take 25 mg by mouth once daily. 0 01/05/2021 Active Encounters Date Type Department Care Team Description 07/18/2023 Orders Only [facility] [address] [place] [id number] Milly Sullivan RN <No scans attached> 07/17/2023 2:00 PM WORK ADJUSTMENT INSTRUCTOR Office Visit [facility] [address] [place] [address] Cathy Calderón MD from Last 3 Months Family History Medical History Relation Name Comments Alzheimer's disease Father Rheum arthritis Mother Relation Name Status Comments Father Mother Social History Tobacco Use Types Packs/Day Years Used Date Smoking Tobacco: Former Smokeless Tobacco: Never Tobacco Cessation:Counseling Given: Yes Comments:smokes for 3 years as a teenager Social Connections Answer Date Recorded Frequency of Communication with Friends and Fami ly Not on file 07/17/2023 Sex and Gender Information Value Date Recorded Sex Assigned at Not on file Gender Identity Not on file Sexual Orientation Not on file Obstetrics History Last Filed Vital Signs Vital Sign Reading Time Taken Comments Blood Pressure 152/75 04/07/2021 10:23 AM CDT to wer Pulse 63 04/07/2021 10:23 AM CDT Temperature - - Respiratory Rate - - Oxygen Saturation 98% 04/07/2021 10:23 AM CDT Inhaled Oxygen Concentration - - Weight 62.1 kg (137 lb) 04/07/2021 10:23 AM CDT Height - - Body Mass Index - - Plan of Treatment Upcoming Encounters Date Type Department Care Team (Late st Contact Info) Description 10/06/2023 10:00 AM WORK ADJUSTMENT INSTRUCTOR Office Visit [facility] [address] [place] [address] Andrae Saucedo MD [address] [place], [place] [id number] Health Maintenance Due Date Last Done Comments Tdap 12/15/1963 Depression screening for age 12+ 1964 BMI (ht and wt on same day) for age 18+ 1970 Hepatitis C screening for ag e 18-79 1970 Tetanus booster 1972 Colonoscopy through age 75 1997 Lipids for age 45-75 1997 Mammogram for age 45-75 1997 Zoster (shingles) series for age 50+ (1 of 2) 2002 DEXA/DXA scan for age 65+ 2017 Medicare Wellness for age 65+ 2017 Pneumococcal series for age 65+ (1 of 1 - PCV) 2017 Influenza for age 65+ 04/21/2023 COVID-19 vaccine series Completed 06/06/20, 07/20/2022, 02/28/2022, Additional history exists Care Teams Skid Machine Operator Relationship Specialty Start Date End Date Mitch Soriano MD [address] [place] [address] PCP - General Family Practice 04/07/21
== END 2023-10-06 06:51 | disposition home or self-care (01) ==
PROVIDERS: PCP Internal Medicine; Visit Provider Family Medicine
DX: R35.0 Frequency of micturition (principal)
CPT/HCPCS: 87086

== ENCOUNTER 2023-10-09 09:30 | Outpatient (CLI) | payer MEDICARE, SELFPAY ==
--- OUTSIDE RECORDS SUMMARY | 2023-10-09 15:44 | XMS_ITS | Clinical Summary ---
Author Name Unknown Organization [employer] [facility] [employer] Address [place], [place] [address] Care Team Providers Care Psychologist Personnel Name Role Phone Mitch Soriano MD Primary Care Provider [phone] Allergies Active Allergy Reactions Criticality Noted Date Comments Shellfish Derived Diarrhea,GI Upset 04/07/2021 Medications Medication Sig Dispensed Refills Start Date End Date Status rosuvastatin (CRESTOR) 20 mg tablet Take 20 mg by mouth once daily. 0 04/05/2021 Active chlorthalidone (HYGROTON) 25 mg tablet Take 25 mg by mouth once daily. 0 01/05/2021 Active metoprolol succinate (Toprol XL) 25 mg Sustained-Release tabletIndications:Paro xysmal atrial fibrillation (HC) Take 1 Tablet (25 mg) by mouth once daily. 90 Tablet 3 10/06/2023 Active Encounters Date Type Department Care Team Description 10/06/2023 10:00 AM DATABASE MARKETING MANAGER Office Visit [facility] [address] [place] [address] Andrae Saucedo MD Arrived 07/18/2023 Orders Only [facility] [address] [place] [address] Milly Sullivan RN <No scans attached> 07/17/2023 2:00 PM DATABASE MARKETING MANAGER Office Visit [facility] [address] [place] [address] Cathy Calderón MD from Last 3 Months [...] Mass Index - - Plan of Treatment Health Maintenance Due Date Last Done Comments [...] 07/20/2022, 02/28/2022, Additional history exists Care Teams Psychologist Personnel Relationship Specialty Start Date End Date Mitch Soriano MD [address] [place] [address] PCP - General Family Practice 04/07/21
== END 2023-10-09 09:31 | disposition home or self-care (01) ==
LOC: NFLDREF 15:42
PROVIDERS: PCP Internal Medicine; Referring Provider Internal Medicine; Visit Provider Internal Medicine
DX: E78.5 Hyperlipidemia, unspecified (principal)
CPT/HCPCS: 80061

== ENCOUNTER 2024-04-17 09:55 | Outpatient (CLI) | payer MEDICARE, SELFPAY ==
--- OUTSIDE RECORDS SUMMARY | 2024-04-18 11:37 | XMS_ITS | Clinical Summary ---
Author Organization [email or web address] [facility] Address [place], [place] [address] Care Team Providers Care Tailor Apprentice Name Role Phone Mitch Soriano MD Primary Care Provider [phone] Allergies Active Allergy Reactions Criticality Noted Date Comments Shellfish Derived Diarrhea,GI Upset 04/07/2021 Medications Medication Sig Dispensed Refills Start Date End Date Status rosuvastatin (CRESTOR) 20 mg tablet Take 20 mg by mouth once daily. 04/05/2021 Active chlorthalidone (HYGROTON) 25 mg tablet Take 25 mg by mouth once daily. 01/05/2021 Active Encounters Date Type Department Care Team Description 03/21/2024 10:00 AM CDT Office Visit [facility] & [address] [address] Julio Larry MD 03/21/2024 Telephone [facility] [address] [place] [address] [place] [address] Julio Larry MD Health Maintenance Update 03/18/2024 Travel from Last 3 Months Family History Medical [...] 65+ (1 of 1 - PCV) 2017 COVID-19 vaccine series (2022-24 season) 2023 06/06/2023, 07/20/2022, 02/28/2022, Additional history exists Influenza for age 65+ 04/21/2024 Procedures Procedure Name Priority Date/Time Associated Diagnosis Comments EXTENDED HOLTER Routine 02/01/2024 Paroxysmal atrial fibrillation (HC) from Last 3 Months Results * ZIO PATCH XT - weekly to monthly symptoms. (02/01/2024) Andrae Saucedo MD CARDIAC SERVICES ORD from Last 3 Months Care Teams Tailor Apprentice Relationship Specialty Start Date End Date Mitch Soriano MD [address] [place] [address] PCP - General Family Practice 04/07/21
== END 2024-04-17 09:56 | disposition home or self-care (01) ==
LOC: NFLDREF 04-18 11:35
PROVIDERS: PCP Internal Medicine; Referring Provider Internal Medicine; Visit Provider Internal Medicine
DX: I10 Essential (primary) hypertension (principal); E78.5 Hyperlipidemia, unspecified
CPT/HCPCS: 80048; 80061

== ENCOUNTER 2024-06-25 17:57 | Emergency (ER) | payer MEDICARE, SELFPAY ==
[2024-06-25 17:59] VITALS: BP 161/81; PULSE 74; RESP 16; TEMP 36.6; O2SAT 95; BMI 29.1
--- NOTE | 2024-06-25 18:24 | CRLHL7_ITS ---
For Patients: As a result of the Century Cures Act, medical imaging exams and procedure reports are released immediately into your electronic medical record. You may view this report before your referring provider. If you have questions, please contact your health care provider. DATE: 06/25/2024 CLINICAL HISTORY: Patient with focal neurological deficits. TECHNIQUE: Standard helical CT image acquisition of the neck up to the skull base after bolus intravenous contrast enhancement. 2D and 3D MIP images for post-processing were performed and interpreted on an independent workstation and 3D images were permanently archived. COMPARISON: CT same day. FINDINGS: The origins of the great vessels from the aortic arch are patent. The origin of the right vertebral artery is patent. The origin of the left vertebral artery is patent. The common carotid arteries are patent. There is no stenosis at the origin of the right internal carotid artery. There is no stenosis at the origin of the left internal carotid artery. The rest of the cervical segments of the internal carotid arteries are patent up to the skull base. The right vertebral artery is dominant. The cervical segments of the vertebral arteries are patent up to the skull base. The visualized lung apices are unremarkable. The thyroid gland is unremarkable. The soft tissues of the neck are unremarkable. There are degenerative changes in the cervical spine. IMPRESSION: Patent cervical vasculature. Please note that all CT scans at this facility use dose modulation, iterative reconstruction, and/or weight-based dosing when appropriate to reduce radiation dose to as low as reasonably achievable. Dictated by Cailin Hill MD @ 06/26/2024 10:07:41 AM (Electronically Signed)
--- OUTSIDE RECORDS SUMMARY | 2024-06-25 18:47 | XMS_ITS ---
Author Organization [facility] Address [address] [place] [address] Care Team Providers Care Instrument And Electrical Technician Name Role Phone Unavailable Unavailable Unavailable Surgery Details Not on file Complications Check Surgery Details section. Procedure Estimated Blood Loss Check Surgery Details section. Procedure Findings Check Surgery Details section. Procedure Specimens Taken Check Surgery Details section.
--- OUTSIDE RECORDS SUMMARY | 2024-06-25 18:47 | XMS_ITS | Encounter Summary ---
Author Organization [facility] Address [address] [place] [address] Care Team Providers Care Hazard Waste Handler Name Role Phone Elsewhere, Pcp Primary Care Provider Unavailabl e Reason for Visit * Appointment Request (Routine) - Closed Specialty Diagnoses / Procedures Referred By Contac t Referred To Contact Sleep Medicine Diagnoses Apnea Sleep Obstructive Julio Larry M.D. [address] [place] [address] , [address] [address] Phone: tel: fax: Referral ID Status Reason Start Date Expiration Date Visits Re quested Visits Authorized [id number] Closed 03/21/2024 03/21/2025 1 1 Encounter Details Date Type Department Care Team (Latest Contact Info) Description 05/20/2024 10:00 AM CDT [facility] [place], [place] [address] [place] [address] Stephenie Gleason M.D. [address] [place] [address] Apnea Sleep Obstructive (Primary Dx) Social History Tobacco Use Types Packs/Day Years Used Date Smoking Tobacco: Former Cigarettes Passive Smoke Exposure: Never Smokeless Tobacco: Never Comments:As a teenage Alcohol Use Standard Drinks/Week Comments No 0 (1 standard drink = 0.6 oz pur e alcohol) [facility] Utilities Answer Date Recorded In the past 12 months has [employer] electric, gas, oil, or water company threatened to shut off services in your home? No 05/13/2024 Exercise Vital Sign Answer Date Recorde d On average, how many days pe r week do you engage in moderate to strenuous exercise (like a brisk walk)? 7 days 05/13/2024 On average, how many minutes do you engage in exercise at this level? 30 min 05/13/2024 Hunger Vital Sign Answer Date Recorded Within the past 12 months, y ou worried that your food would run out before you got the money to buy more. Never true 05/13/20 24 Within the past 12 months, t he food you bought just didn't last and you didn't have money to get more. Never true 05/13/2024 PRAPARE - Transportation Answer Date Re corded In the past 12 months, has l ack of transportation kept you from medical appointments or from getting medications? No 04/22 In the past 12 months, has l ack of transportation kept you from meetings, work, or from getting things needed for daily living? No 05/13/2024 Nutrition Answer Date Recorded On average, how many serving s of fruits and vegetables do you eat per day (serving size is equal to 1 cup or approximately the size of a tennis ball)? 3-5 05/13/2024 Dental Answer Date Recorded Dental: Regular Dentist Yes 05/13/20 Employment Answer Date Recorded Employment status Employed and actively working without restrictions 05/13/2024 Housing Stability Answer Date Recorded What is your living situation today? 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 - 05/20/2024 10:00 AM CDT SUBJECTIVE REFERRAL Julio Larry M.D. CHIEFCOMPLAINT/REASON FOR CONSULT Ms. Griffith is seen by request of Julio Larry M.D. for sleep evaluation. HISTORY OF PRESENT ILLNESS Ms. Griffith presents for evaluation of sleep disordered breathing. Time spent reviewing outside records. She presents along with her (whom I have had the pleasure of also seeing as a patient)who assists in providing collateral history. The patient was recently diagnosed with symptomatic paroxysmal atrial fibrillation. She underwent cardioversion attempts twice, but unfortunately had recurrence. She was then treated briefly with amiodarone with conversion back to sinus rhythm and subsequent discontinuation. She is maintained on apixaban. She has p.r.n. beta blockade available if necessary. Most recent monitoring demonstrated no further episodes of atrial fibrillation. Symptoms have also completely resolved. Thinking back, she believes she has had episodes of atrial fibrillation dating back 30-40 years. She recalls multiple events with palpitations and associated heart rates 200+ beats per minute. Her cardiologists recommended pursuing testing for sleep disordered breathing to determine if ZIGGY could becontributing to atrial fibrillation. The patient subsequently underwent testing at an outside facility. Polysomnography was performed on07/04/2023. Body weight was 174 lb. Total sleep time 218 minutes. Overall apnea-hypopnea index was 20.9 per hour and the respiratory disturbance index was 25 per hour. Per the report, increased events were noted in the supine position. She returned for a titration study. I was unable to find these records. The patient recalls being eventually prescribed CPAP at a pressure of 13 cm of water. However, she found this pressure to be too high and was unable to tolerate therapy. She self reduced pressure on her device to current setting of 11 cm of water. In that setting, she now loves using CPAP. She finds her sleep consolidation and sleep quality to be significantly improved. She uses a fullface mask, which does tend to leak. It also causes bridge of the nose discomfort. She does use heated humidity with distilled water. Her endorses history of loud snoring prior to implementation of CPAP. There was no known history of witnessed apneas. She denies waking with a dry mouth or morning headaches. 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 Snoring has resolved with CPAP as well. She favors sleeping on the side. She goes to bed between nine and 930. She falls asleep quickly. She awakens once to use the restroom and generally gets back to sleep quickly. She awakens at 5:30 a.m., now feeling rested. Prior to implementation of CPAP, she describes history of disrupted sleep, with multiple nocturnal arousals and intermittent maintenance insomnia. These have all resolved. She provides an Pinola score of 20/24. However on detailed questioning, she denies daytime drowsiness or fatigue. Rather, she describes her symptoms as feeling ???unmotivated ???. This has emerged recently, following addressing AFib and ZIGGY. She reports back when she was having very high heart rates, she had an accompanying anxious feeling which also led her to be more productive. Now with resolution, she feels more bland. It is also noteworthy that she has significantly reduced her caffeine intake from one pot a day down to 1-2 cups daily. She does not take a planned nap. However, she has atendency to doze while watching television in the evening. She could doze off in a movie theater, or in religious. This has been longstanding. 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 She has had episodes in the past of drowsy driving. However, at there have been no episodes since implementation of CPAP. We spent time discussing the dangers of drowsy driving. She is extremely cautious and now limits long drives and nighttime driving. She denies the cardinal features of restless legs syndrome. There is no history suggesting excessive leg movements during sleep. No history of parasomnia behaviors. The following portions of the patient's history were reviewed and updated as appropriate: allergies, current medications, family history, medical history, social history, surgical history. REVIEW OF SYSTEMS Positives are as stated above. Remainder was performed and was negative. SOCIAL HISTORY: She is a nonsmoker. She has discontinued all alcohol use. She has cut back caffeinesignificantly from one pot a day down to 1-2 cups in the morning. FAMILY HISTORY: Possible sleep apnea in her son. Her has ZIGGY and is on CPAP VITAL SIGNS Vitals: 05/20/24 0940 BP: 152/69 Pulse: 77 Body mass index is 30.26 kg/m??. PHYSICAL EXAM Mental Status Exam Appearance/behavior: Well groomed, in no apparent distress. Good eye contact. No abnormal movementsnoted. Consciousness/Orientation: Alert. Oriented to person, place, date and time. No psychomotor abnormalities. Cognition/Memory: Orientated times three, as described above. Cooperative/reliability: Cooperative, reliable informant. Mood/Affect: Euthymic mood with full range affect. Speech/Language: Regulate rate, rhythm, volume, and tone. Thought Form: No formal thought disorder. Thought Content: No abnormalities of thought content. Attention/Concentration: No apparent abnormalities in attention or concentration. Knowledge: Knowledge base within normal limits. Abstraction: Abstraction abilities within normal limits. Judgement: Intact. Insight/motivation: Good insight/motivation. ASSESSMENT / PLAN #1 Moderate obstructive sleep apnea, on CPAP #2 Symptomatic paroxysmal atrial fibrillation #3 Recent onset of daytime fatigue/unmotivated sensation #4 Recent significant reduction in caffeine intake #5 Longstanding history of drowsiness in sedentary situations It was a great pleasure to visit with the patient and her (whom I have also had the opportunity of seeing as a patient). Time spent reviewing outside records which are summarized above. The patient was recently diagnosed with moderate obstructive sleep apnea. We spent time discussing the pathophysiology of sleep disordered breathing. We discussed cardiovascular and cerebrovascular risks associated with untreated disease that is at least moderate in severity. We also discussed associations between untreated sleep apnea and atrial arrhythmia. She is maintained on CPAP at a fixed pressure of 11 cm of water (although prior titration demonstrated best results at 13 cm of water). From a clinical standpoint, she describes significant improvements in sleep consolidation since implementing CPAP. She has had no further episodes of paroxysmal atrial fibrillation. I also had the opportunity to review her device download report. Over the last 30 days, she has used her machine on all nights. Average nightly usage is 8 hours. Leak rates are acceptable. Residual AHI 0.8 per hour, reflecting optimal treatment of sleep disordered breathing with current settings. Based on clinical history and download data, it appears that her sleep apnea is optimally treated with CPAP at current settings. I suspect the ???unmotivated ???feeling may be multifactorial and potentially stem at least in part from the significant recent reduction in caffeine intake. She also describes longer standing drowsiness when in sedentary situations. If these persist, it would be reasonable to repeat titration to ensure CPAP settings are optimal (particularly as pressures were decreased from time of original titration), and to ensure there is no evidence of treatment emergent central sleep apnea which may require a different modality of therapy. Most recent outside echocardiogram demonstrated left ventricular ejection fraction of 63%, thus she would be an ASV candidate if needed. The patient indicates she is very comfortable with this plan. She will reach out to me if the abovesymptoms persist so that we can coordinate retitration. She should continue using CPAP on a nightlybasis. Weight control will remain important in the management of sleep disordered breathing and in the prevention of worsening. We discussed she should continue using caution in all situations that require constant alertness and never drive if feeling drowsy. An extended time was spent answering questions. It was a pleasure to assist in her care. documented in this encounter Plan of Treatment Not on file documented as of this encounter Visit Diagnoses Diagnosis Apnea Sleep Obstructive- Primary documented in this encounter Care Teams Hazard Waste Handler Relationship Specialty Start Date End Date Elsewhere, Pcp PCP - General Internal Medicine 05/15/24 documented as of this encounter
--- OUTSIDE RECORDS SUMMARY | 2024-06-25 18:47 | XMS_ITS | Encounter Summary ---
Author Organization [facility] Address [address] [place] [id number] Care Team Providers Care Science Consultant Name Role Phone Elsewhere, Pcp Primary Care Provider Unavailabl e Encounter Details Date Type Department Care Team (Late st Contact Info) Description 06/19/2024 CPAP Download Remote Patient Monitoring [facility] [address] [place] [address] [facility], Provider, Social History Tobacco Use Types Packs/Day Years Used Date Smoking Tobacco: Former Cigarettes Passive Smoke Exposure: Never Smokeless Tobacco: Never Comments:As a teenage Alcohol Use Standard Drinks/Week Comments No 0 (1 standard drink = 0.6 oz pur e alcohol) [facility] Utilities Answer Date Recorded In the past 12 months has e [employer], gas, oil, or water [employer] threatened to shut off services in your [...] your living situation today? 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
--- OUTSIDE RECORDS SUMMARY | 2024-06-25 18:47 | XMS_ITS | Clinical Summary ---
Author Organization [facility] Address [place], [place] [address] Care Team Providers Care Camp Cook Name Role Phone Mitch Soriano MD Primary Care Provider [phone] Allergies Active Allergy Reactions Criticality Noted Date Comments Shellfish Derived Diarrhea,GI Upset 04/07/2021 Medications Medication Sig Dispensed Refills Start Date End Date Status rosuvastatin (CRESTOR) 20 mg tablet Take 20 mg by mouth once daily. 04/05/2021 Active chlorthalidone (HYGROTON) 25 mg tablet Take 25 mg by mouth once daily. 01/05/2021 Active Encounters Date Type Department Care Team Description 05/27/2024 1:27 PM CDT - 05/27/2024 4:04 PM CDT Emergency [facility] Emergency Department [address] [place] [address] Petra Pardo DO Butler, McKinzy Faith, MD Atrial fibrillation with rapid ventricular response (HC) (Primary Dx); Hypokalemia Discharge Disposition: Home Self Care 05/27/2024 Telephone [facility] [address] [facility] [address] [place] [phone] Julio Larry MD MARK (Sleep Study Results) 05/27/2024 Travel 05/27/2024 Telephone [facility] [address] [facility] [address] [place] [phone] Julio Larry MD Atrial Fibrillation 05/22/2024 9:00 AM CDT Office Visit [facility] [address] [place], [place] [id number] Burke Connors, Joseph Hearing Problem 05/22/2024 Travel 05/17/2024 Travel 04/27/2024 Transcribe Orders [facility] [address] [place] [address] Tiana Monteiro MD from Last 3 Months Family History [...] Sign Reading Time Taken Comments Blood Pressure 130/97 05/27/2024 2:00 PM CDT Pulse 79 05/27/2024 2:52 PM CDT Temperature 36.8 ??C (98.2 ??F) 05/27/2024 1:32 PM CD T Respiratory Rate 18 05/27/2024 1:32 PM CDT Oxygen Saturation 95% 05/27/2024 2:46 PM CDT Inhaled Oxygen Concentration - - Weight 81.6 kg (180 lb) 05/27/2024 1:32 PM CDT Height 167.6 cm (5' 6) 05/27/2024 1:32 PM CDT Body Mass Index 29.05 05/27/2024 1:32 PM CDT Plan of Treatment Health Maintenance Due Date [...] - PCV) 2017 Influenza for age 65+ 04/21/2024 COVID-19 vaccine series Completed 04/27/20 24, 06/06/2023, 07/20/2022, Additional history exists Procedures Procedure Name Priority Date/Time Associated Diagnosis Comments EKG 12 LEAD STAT 05/27/2024 3:14 PM CDT EKG 12 LEAD STAT 05/27/2024 2:35 PM CDT MAGNESIUM STAT 05/27/2024 1:43 PM CDT BASIC METABOLIC PANEL STAT 05/27/2024 1:43 PM CDT CBC W PLT NO DIFF STAT 05/27/2024 1:4 3 PM CDT EKG 12 LEAD STAT 05/27/2024 1:38 PM CDT from Last 3 Months Results * EKG 12 LEAD (05/27/2024 3:14 PM CDT) Only the most recent of2 resultswithin the time period is included. Interpretation Sinus bradycardia Minimal voltage criteria for LVH, may be normal variant ( R in aVL ) Borderline ECG BEYOND NOW Ventricular Rate 59 BPM BEYOND NOW Atrial Rate 59 BPM BEYOND NOW P-R Interval 140 ms BEYOND NOW QRS Duration 88 ms BEYOND NOW QT 370 ms BEYOND NOW QTc 366 ms BEYOND NOW P Wylie 52 degrees BEYOND NOW R Wylie 6 degrees BEYOND NOW T Wylie 27 degrees BEYOND NOW 05/27/2024 3:14 PM CDT 05/27/2024 7:28 PM CDT Petra Pardo DO EKG ORD BEYOND NOW [place], [place] * CBC W PLT NO DIFF (05/27/2024 1:43 PM CDT) WHITE BLOOD COUNT 5.7 4.5 - 11.0 thou/cu mm 05/27/2024 1:57 PM CDT [facility] RED BLOOD COUNT 5.20 4.00 - 5.20 mil/cu mm 05/27/2024 1:57 PM CDT [facility] HEMOGLOBIN 15.0 12.0 - 16.0 g/dL 05/27/2024 1:57 PM CDT [facility] HEMATOCRIT 45.5 33.0 - 51.0 % 05/27/2024 1:57 PM CDT [facility] MCV 88 80 - 100 fL 05/27/2024 1:57 PM CDT [facility] MCH 28.8 26.0 - 34.0 pg 05/27/2024 1:57 PM CDT [facility] MCHC 33.0 32.0 - 36.0 g/dL 05/27/2024 1:57 PM CDT [facility] RDW 13.7 11.5 - 15.5 % 05/27/2024 1:57 PM CDT [facility] PLATELET COUNT 160 140 - 440 thou/cu mm 05/27/2024 1:57 PM CDT [facility] MPV 10.0 6.5 - 11.0 fL 05/27/2024 1:57 PM CDT [facility] NRBC 0.0 % 05/27/2024 1:57 PM CDT [facility] ABS NRBC 0.0 thou /cu mm 05/27/2024 1:57 PM CDT [facility] Blood BLOOD SPECIMEN / Unknown Butterfly / Unknown 05/27/2024 1:43 PM CDT 05/27/2024 1:50 PM CDT Petra Pardo DO HEMATOLOGY [facility] [address] [place] [address], * MAGNESIUM (05/27/2024 1:43 PM CDT) MAGNESIUM 2.3 1.6 - 2.4 mg/dL 05/27/2024 2:16 PM CDT [facility] Blood BLOOD SPECIMEN / Unknown Butterfly / Unknown 05/27/2024 1:43 PM CDT 05/27/2024 1:50 PM CDT Petra Charlesthompsonjan DO CHEMISTRY [facility] [address] [place] [address], [place] * (ABNORMAL) BASIC METABOLIC PANEL (05/27/2024 1:43 PM CDT) SODIUM 143 136 - 145 mmol/L 05/27/2024 2:16 PM CDT [facility] POTASSIUM 3.3(L) 3.5 - 5.1 mmol/L 05/27/2024 2:16 PM CDT [facility] CHLORIDE 104 98 - 107 mmol/L 05/27/2024 2:16 PM CDT [facility] CO2,TOTAL 28 22 - 29 mmol/L 05/27/2024 2:16 PM CDT [facility] ANION GAP 11 5 - 18 05/27/2024 2:16 PM CDT [facility] GLUCOSE 105(H) 70 - 99 mg/dL 05/27/2024 2:16 PM CDT [facility] CALCIUM 9.8 8.8 - 10.2 mg/dL 05/27/2024 2:16 PM CDT [facility] BUN 8 8 - 23 mg/dL 05/27/2024 2:16 PM CDT [facility] CREATININE 0.89 0.50 - 0.90 mg/dL 05/27/2024 2:16 PM CDT [facility] BUN/CREAT RATIO 9(L) 10 - 20 2:16 PM CDT [facility] eGFR 69(L) >90 mL/min/1.7 3m2 05/27/2024 2:16 PM CDT [facility] Comment:As of 2021, eG FR is calculated by the CKD-EPI creatinine equation without race adjustment. ??eGFR can be influenced by muscle mass, exercise, and diet. ??The reported eGFR is an estimation only and is only applicable if the renal function is stable. Blood BLOOD SPECIMEN / Unknown Butterfly / Unknown 05/27/2024 1:43 PM CDT 05/27/2024 1:50 PM CDT Petra Pardo DO CHEMISTRY [facility] [address] [place] [address], from Last 3 Months Care Teams Camp Cook Relationship Specialty Start Date End Date Mitch Soriano MD [address] [place] [phone] PCP - General Family Practice 04/07/21
--- OUTSIDE RECORDS SUMMARY | 2024-06-25 18:47 | XMS_ITS | Encounter Summary ---
Author Organization [facility] Address [address] [place] [address] Care Team Providers Care Industrial Cleaning Technician Name Role Phone Elsewhere, Pcp Primary Care Provider Unavailabl e Encounter Details Date Type Department Care Team (Late st Contact Info) Description 05/19/2024 CPAP Download Remote Patient Monitoring [facility] [address] [place] [address] [facility], Provider, Social History Tobacco Use Types Packs/Day Years Used Date Smoking Tobacco: Former Cigarettes Passive Smoke Exposure: Never Smokeless Tobacco: Never Comments:As a teenage Alcohol Use Standard Drinks/Week Comments No 0 (1 standard drink = 0.6 oz pur e alcohol) [facility] Utilities Answer Date Recorded In the past 12 months has e [employer], gas, oil, or water [employer] threatened to shut off services in your [...] your living situation today? 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
--- OUTSIDE RECORDS SUMMARY | 2024-06-25 18:47 | XMS_ITS | Referral Summary ---
Author Organization [facility] Address [address] [place] [address] Care Team Providers Care Switchboard Operator Name Role Phone Elsewhere, Pcp Primary Care Provider Unavailabl e Source Comments Patient records contain information from all sites at [facility]. For routine questions regarding patient records, call [phone] during business hours, M-F 8:00 AM - 5:00 PM Central Time. Record requests for emergency care only can be directed to [phone] at any time.[facility] Encounters Date Type Department Care Team Description 06/19/2024 CPAP Download Remote Patient Monitoring [facility] [address] [place] [phone] [facility], ProviderMD 05/20/2024 10:00 AM CDT Comprehensive Visit [facility] in [address] [phone] Stephenie Gleason M.D. Apnea Sleep Obstructive (Primary Dx) 05/19/2024 CPAP Download Remote Patient Monitoring [facility] [address] [place] [address] [facility], ProviderMD 05/15/2024 10:45 AM CDT Clinical Communication Virtual Review in [address] [phone] Pre-visit Intake from Last 3 Months Allergies Active Allergy Reactions Criticality Noted Date Comments Shellfish Derived Diarrhea,GI intolerance 04/07 Shrimp GI intolerance 08/01/1990 Medications lutein 40 mg capsule Take 40 mg by mouth daily. Active multivitamin-min vydtc-JJ-mkfqyhu e-lutein (CENTRUM SILVER) 0.4-300-250 mg-mcg-mcg tablet Take 1 tablet by mouth daily. Active magnesium oxide (MAG-OX) 250 mg tablet Take 250 mg by mouth daily. Active cholecalciferol (VITAMIN D3) 2,000 Unit capsule Take 2,000 Units by mouth daily. Active fish oil 1,000 mg capsule Take 2 capsules by mouth daily. Active calcium carbonate (CALCIUM 600 ORAL) Take 1 tablet by mouth daily. Active rosuvastatin (Crestor) 20 mg tablet Take 20 mg by mouth daily. Active metoprolol tartrate (Lopressor) 25 mg tablet Take 25 mg by mouth as needed. 3 Active chlorthalidone (Hygroton) 25 mg tablet Take 0.5 tablets by mouth daily. Active apixaban (Eliquis) 5 mg tablet Take 5 mg by mouth 2 (two) times a day. 3 Active B complex-vitamin (Super B-50) capsule Take 1 capsule by mouth daily. Active DME CPAPIndications: Apnea Sleep Obstructive DME Order 1 each 4 Active Active Problems Problem Noted Date Diagnosed Date Primary Osteoarthritis Knee Left 05/16/2018 Social History Tobacco Use Types Packs/Day Years Used Date Smoking Tobacco: Former Cigarettes Passive Smoke Exposure: Never Smokeless Tobacco: Never Tobacco Cessation:Counseling Given: Not Answered Comments:As a teenage Alcohol Use Standard Drinks/Week Comments No 0 (1 standard drink = 0.6 oz pur e alcohol) [facility] Utilities Answer Date Recorded In the past 12 months has e [employer], [employer], oil, or water [email or web address] threatened to shut off services in your [...] your living situation today? 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 Pins/Screws/R ods Hardware e.g. pins/screws/ rods Mouth Description:Dental Knee Implant Knee Implant Left: Knee Insurance [facility] Care Teams Switchboard Operator Relationship Specialty Start Date End Date Elsewhere, Pcp PCP - General Internal Medicine 05/15/24
--- OUTSIDE RECORDS SUMMARY | 2024-06-25 18:47 | XMS_ITS | Encounter Summary ---
Author Organization [facility] Address [address] [place] [address] Care Team Providers Care Run Boat Operator Name Role Phone Elsewhere, Pcp Primary Care Provider Unavailabl e Encounter Details Date Type Department Care Team (Late st Contact Info) Description 09/11/2023 CPAP Download Remote Patient Monitoring [facility] [address] [place] [address] [facility], Provider, Social History Tobacco Use Types Packs/Day Years Used Date Smoking Tobacco: Never Assessed [facility] Utilities Answer Date Recorded In the past 12 months has th e electric, gas, oil, or water [employer] threatened to shut off services in your [...] your living situation today? 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
--- OUTSIDE RECORDS SUMMARY | 2024-06-25 18:47 | XMS_ITS | Clinical Summary ---
Author Organization [facility] Address [address] [place] [address] Care Team Providers Care Recovery Specialist Name Role Phone Elsewhere, Pcp Primary Care Provider Unavailabl e Source Comments Patient records contain information from all sites at [facility]. For routine questions regarding patient records, call [phone] during business hours, M-F 8:00 AM - 5:00 PM Central Time. Record requests for emergency care only can be directed to [phone] at any time.[facility] Allergies Active Allergy Reactions Criticality Noted Date Comments Shellfish Derived Diarrhea,GI intolerance 04/07 Shrimp GI intolerance 08/01/1990 Medications lutein 40 mg capsule Take 40 mg by mouth daily. Active multivitamin-min fxyqo-NG-audsmfs e-lutein (CENTRUM SILVER) 0.4-300-250 mg-mcg-mcg tablet Take [...] Diagnosed Date Primary Osteoarthritis Knee Left 05/16/2018 Encounters Date Type Department Care Team Description 06/19/2024 CPAP Download Remote Patient Monitoring [facility] [address] [place] [address] [facility], Provider, 05/20/2024 10:00 AM CDT Comprehensive Visit [facility] in [place], [place] [address] [place] [phone] Stephenie Gleason M.D. Apnea Sleep Obstructive (Primary Dx) 05/19/2024 CPAP Download Remote Patient Monitoring [facility] [address] [place] [address] [facility], ProviderMD 05/15/2024 10:45 AM CDT Clinical Communication Virtual Review in [place], [place] [address] [place] [address] Pre-visit Intake from Last 3 Months Family History Medical History Relation Name Comments Dementia Father Marquise Palumbo Skin cancer Father Marquise Palumbo Transient ischemic attack Father Marquise Palumbo Diabetes Mother Catrachita Palumbo Hypertension Mother Catrachita Palumbo Rheum arthritis Mother Catrachita Palumbo Thyroid disease Mother Catrachita Palumbo Alcohol abuse Paternal Grandfather Josiah Avila Ovarian cancer Paternal Grandmother Cristóbal Tavarez Skin cancer Sister Desiree Love Relation Name Status Comments Father Marquise Palumbo Mother Catrachita Palumbo Paternal Grandfather Josiah Avila Paternal Grandmother Cristóbal Nathrd Sister Desiree Love Social History Tobacco Use Types Packs/Day Years Used Date Smoking Tobacco: Former Cigarettes Passive Smoke Exposure: Never Smokeless Tobacco: Never Tobacco Cessation:Counseling Given: Not Answered Comments:As a teenage Alcohol Use Standard Drinks/Week Comments No 0 (1 standard drink = 0.6 oz pur e alcohol) [facility] Utilities Answer Date Recorded In the past 12 months has th e [employer], gas, oil, or water company threatened to [...] your living situation today? 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 Gender Identity Female 05/02/2018 6:21 AM CDT [...] 05/20/2024 9:40 AM CDT Plan of Treatment Health Maintenance Due Date Last Done Comments Bone Density Scan (Osteoporosis Screen) 1952 CT Colonography 1950 Cologuard 1950 Colonoscopy 1950 Colorectal Cancer Surveillance 1950 Hepatitis C Screening 1950 Mammogram 1950 Zoster Vaccines (1 of 2) 2002 RSV vaccine - (32-36 weeks) or 60+ years (1 - Risk 60-74 years 1-dose series) 2012 DTaP,Tdap,and Td Vaccines (1 - Tdap) 12/17/2016 12/16/2016 Pneumococcal vaccine (65+ years) (2 of 2 - PPSV23 or PCV20) 10/15/2021 10/15/2020 Depression Screening (Annual PHQ-2) 08/21/2023 Fall Risk Screen (Annual) 08/21/2023 COVID-19 Vaccine ( season) 2024 07/20/2022, 02/28/2022, 06/07/2021, Additional history exists Office Visit for Blood Pressure Check / Re-check 08/19/2024 05/20/2024 Fasting Glucose for Diabetes Screening 05/27/2027 05/27/2024 Influenza Vaccine Completed 04/27/2024, , 07/20/2022, Additional history exists IPV Vaccines Aged Out No longer eligi ble based on patient's age to complete this topic Medical Devices Implanted Type Area Platform Engineer Device Identifier Shelf Expiration Date Model / Serial / Lot Hardware E.G. Pins/Screws/R ods Hardware e.g. pins/screws/ rods Mouth Description:Dental Knee Implant Knee Implant Left: Knee Insurance [facility] Care Teams Recovery Specialist Relationship Specialty Start Date End Date Elsewhere, Pcp PCP - General Internal Medicine 05/15/24
--- OUTSIDE RECORDS SUMMARY | 2024-06-25 18:47 | XMS_ITS | Encounter Summary ---
Author Organization [facility] Address [address] [place] [address] Care Team Providers Care Shuttle Driver Name Role Phone Elsewhere, Pcp Primary Care Provider Unavailabl e Reason for Visit * Reason Onset Date Comments Pre-visit Intake 05/15/2024 Encounter Details Date Type Department Care Team (Latest Contact Info) Description 05/15/2024 10:45 AM CDT Clinical Communication Virtual Review in [place], [place] 200 [place] [address] Pre-visit Intake Social History Tobacco Use Types Packs/Day Years Used Date Smoking Tobacco: Former Cigarettes Passive Smoke Exposure: Never Smokeless Tobacco: Never Tobacco Cessation:Counseling Given: Not Answered Comments:As a teenage Alcohol Use Standard Drinks/Week Comments No 0 (1 standard drink = 0.6 oz pur e alcohol) [facility] Utilities Answer Date Recorded In the past 12 months has [employer], gas, oil, or water company threatened [...] your living situation today? 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
[2024-06-25 18:57] LABS: Creatinine, Point-of-Care* 0.9 mg/dl (0.6-1.3)
--- NOTE | 2024-06-25 19:07 | ED.GENADULT ---
HPI - General Adult General Date Seen: 06/25/24 Chief complaint: Fall/Minor Trauma Stated complaint: fall, on eliquis Time Seen by Provider: 06/25/24 17:59 Source: patient and RN notes reviewed Mode of arrival: ambulatory Limitations: no limitations History of Present Illness HPI narrative: Patient is a 73-year-old woman, anticoagulated on Eliquis, who says she was walking briskly pushing her wheelbarrow when it went 1 direction and she tripped and fell. She hit the front of her neck on 1 of the handles, she says she landed very hard on the front of her neck and now has pain in the anterior neck and left neck, as well as difficulty swallowing. She has not noticed any swelling in the area but it is tender to touch. No other head or neck injury, no posterior neck pain. Related Data Home Medications ?Medication ?Instructions ?Recorded ?Confirmed calcium carbonate 600 mg PO DAILY 03/16/22 04/23/24 cholecalciferol (vitamin D3) 50 50 mcg PO DAILY 03/16/22 04/23/24 mcg (2,000 unit) capsule magnesium oxide 500 mg capsule 250 mg PO DAILY 03/16/22 04/23/24 dntmnsqkcpnf-zaknuovi-rkmudt tablet 1 tab PO DAILY 03/16/22 04/23/24 B-complex with vitamin C 1 cap PO DAILY 06/20/22 04/23/24 lutein 15 mg-zeaxanthin extract 1 cap PO DAILY 04/27/23 04/23/24 0.7 mg capsule omega 5-bvb-zvg-fish oil 1,000 mg 2 cap PO DAILY 04/27/23 04/23/24 (120 mg-180 mg) capsule (Fish Oil) Previous Rx's ?Medication ?Instructions ?Recorded metoprolol tartrate 25 mg tablet 25 mg PO DAILY PRN #30 tabs 06/30/23 apixaban 5 mg tablet (Eliquis) 5 mg PO BID #180 tabs 04/23/24 chlorthalidone 25 mg tablet 12.5 mg (1/2 x 25 mg) PO DAILY #45 04/23/24 tabs rosuvastatin 20 mg tablet 20 mg PO DAILY #90 tabs 04/23/24 Allergies Allergy/AdvReac Type Severity Reaction Status Date / Time shellfish derived Allergy Verified 06/25/24 19:07 Review of Systems Status of ROS: Reports: 6 or more systems reviewed and unremarkable except as noted in History and below PFSH PFSH Surgical History History of total knee replacement ?Z96.659 - Presence of unspecified artificial knee joint (ICD-10) History of dilation and curettage ?Z98.890 - Other specified postprocedural states (ICD-10) Family History Father Alzheimers disease Social History Narrative: She lives with her marcelo. He is healthcare power of sales operations director. She drinks about 5 alcoholic beverages per week. She does not smoke. Code status is full. is healthcare power of sales operations director. What is your current living situation?: I presently have a place to live Problems where you live: no known problems Problems where you live details: no known problems In the past 12 months, utilities in danger of being shut off: no In past 12 months, lack of transportation kept you from medical appts, meetings, work, or getting things needed for daily living: no In the past 12 mos, have been you worried that your food would run out before you had money to buy more?: never true In the past 12 mos, the food you bought just didn't last and you didn't have money to buy more?: never true Highest level of school completed/degree received: Master's degree Smoking Status: Never smoker Do you use any of these nicotine containing products: None Second hand tobacco smoke exposure: No How often do you have a drink containing alcohol: never How often do you have six or more drinks on one occasion: Never AUDIT-C Alcohol total score: 0 Non-prescribed substance use: denies use Caffeine: Yes How often does anyone, including family, friends and others, physically hurt you: never How often does anyone, including family, friends and others, insult or talk down to you: never How often does anyone, including family, friends and others, threaten you with harm: never How often does anyone, including family, friends and others, scream or curse at you: never Little interest or pleasure in doing things: not at all Feeling down, depressed, or hopeless: not at all service: No Exam Narrative: Exam Narrative: Vital signs reviewed In general, alert, nontoxic woman. Breathing easily. Head: Normocephalic, atraumatic. Eyes: Sclera clear, pupils equal and reactive. ENT: No facial trauma, dentition intact. Neck: No posterior neck tenderness, anterior neck is atraumatic in appearance, there is no bruising, swelling, masses, subcu air. Carotid pulses are palpable bilaterally. Heart: Regular rate and rhythm without murmur. Lungs: Clear Neurologic: She is alert, conversant, face symmetric, moves all extremities, gait stable. Const: Vital Signs, click to edit/add: Vital Signs - 24 hr 06/25/24 17:59 06/25/24 20:13 Temperature 97.8 F Pulse Rate [Pulse Oximeter] 74 78 Respiratory Rate 16 16 Blood Pressure [Ri ght Upper Arm] 161/81 H 145/78 H Pulse Oximetry 95 Oxygen Delivery Me thod Room Air Documenting provider has reviewed patient's vital signs: yes Course Course ED Course: Exam is largely reassuring without evidence of hematoma or bruising. However given direct anterior neck trauma with ongoing pain in tenderness, or rule out vascular or airway trauma with CT angiogram. CT scan read link below, this is a preliminary read, I did talk with the radiologist to confirm that there were no soft tissue findings or other concerning findings including no evidence of vascular injury. Airway remains patent, she still has pain with swallowing, which I think is likely soft tissue related. I think it is reasonable to let her go home, discussed conservative measures such as ice, Tylenol. Reviewed reasons to return such as worsening or severe pain, swelling, difficulty breathing etcetera. Primary care follow-up for ongoing concerns. Vital Signs Vital signs: Initial Vital Signs Temperature 97.8 F 06/25/24 17:59 Temperature Source Temporal Artery Scan 06/25/24 17:59 Pulse Rate 74 06/25/24 17:59 Respiratory Rate 16 06/25/24 17:59 Blood Pressure 161/81 H 06/25/24 17:59 Blood Pressure Mean 107 H 06/25/24 17:59 Blood Pressure Position Sitting 06/25/24 17:59 Pulse Oximetry 95 06/25/24 17:59 Oxygen Delivery Method Room Air 06/25/24 17:59 Vital Signs Temperature 97.8 F 06/25/24 17:59 Pulse Rate 74 06/25/24 17:59 Respiratory Rate 16 06/25/24 17:59 Blood Pressure 161/81 H 06/25/24 17:59 Pulse Oximetry 95 06/25/24 17:59 Oxygen Delivery Method Room Air 06/25/24 17:59 Temperature 97.8 F 06/25/24 17:59 Pulse Rate 78 06/25/24 20:13 Respiratory Rate 16 06/25/24 20:13 Blood Pressure 145/78 H 06/25/24 20:13 Pulse Oximetry 95 06/25/24 17:59 Oxygen Delivery Method Room Air 06/25/24 17:59 Medical Decision Making Lab Data Labs: Lab Results 06/25/24 Range/Units 18:43 POC Creatinine 0.9 (0.6-1.3) mg/dl Imaging Data CT- Other: Attestation: I have reviewed the pertinent imaging results. Radiologist's impression: Patient: BRY MOTLEY Facility: [facility] Site . Site : 1950 Study: CT-Neck Angio W/ 95CC ISOVUE 370-06/25/2024 7:20:15 PM Ordering Physician: Maximiliano Dueñas Preliminary Report: INDICATION: Anterior neck trauma, throat pain. TECHNIQUE: Multiplanar CT angiogram of the neck was performed after the administration of 95 mL of Isovue 370 intravenous contrast. COMPARISON: None. PRELIMINARY FINDINGS: The aortic arch has a conventional anatomy. The great vessels remain patent. The common carotid arteries remain patent. The cervical ICA segments remain patent bilaterally. The origins of the common carotid arteries remain patent. Mild atherosclerotic calcifications carotid bifurcations. Codominant vertebral arteries. The cervical vertebral arteries remain patent. The origins of the vertebral arteries remain patent. The visualized thyroid is unremarkable. The visualized lung onofre are clear. PRELIMINARY IMPRESSION: No hemodynamically significant stenoses of the cervical arterial vasculature. No CT evidence of vascular injury. Full final dictated report to follow. Dictated by Freedom Bear MD @ 06/25/2024 7:43:16 PM Read by: Freedom Bear MD @06/25/2024 7:43:36 PM Discharge Plan Discharge Clinical Impression: Contusion of neck Patient Disposition: Home, Self-Care Condition: Stable Instructions: Contusion in Adults (ED) Additional Instructions: Tylenol, ice as needed. I would expect soreness to persist for a few days, gradually improved thereafter. If at any time pain becomes more severe, you have swelling, difficulty breathing, or other significant changes, return for re-evaluation. Your CT scan today is reassuring, there is no evidence of significant trauma internally. See primary care in the next week for recheck. Prescriptions: No Action B-complex with vitamin C Capsule 1 cap PO DAILY lutein-zeaxanthin extract 15-0.7 mg capsule 1 cap PO DAILY rosuvastatin 20 mg tablet 20 mg PO DAILY Qty: 90 3RF chlorthalidone 25 mg tablet 12.5 mg PO DAILY Qty: 45 3RF Eliquis 5 mg tablet 5 mg PO BID Qty: 180 3RF metoprolol tartrate 25 mg tablet 25 mg PO DAILY PRNQty: 30 0RF Rx Instructions: Confirm you are in AFIB. If rate is >120 and your systolic blood pressure (top number) is >110 then take 1 tab of metoprolol. May repeat with same parameters 1 hour later if needed. magnesium oxide 500 mg capsule 250 mg PO DAILY calcium carbonate 600 mg calcium (1,500 mg) tablet 600 mg PO DAILY grialmhzqbta-tasdnttz-ysbkcu Tablet 1 tab PO DAILY cholecalciferol (vitamin D3) 50 mcg (2,000 unit) capsule 50 mcg PO DAILY omega 3-fyn-iqu-fish oil [Fish Oil] 1,000 mg (120 mg-180 mg) capsule 2 cap PO DAILY Follow Up/Referrals: Tiana Monteiro MD [Primary Care Provider] - Stand Alone Forms: [employer] Info Instructions
[2024-06-25 20:13] VITALS: BP 145/78; PULSE 78; RESP 16
== END 2024-06-25 20:14 | disposition home or self-care (01) ==
PROVIDERS: Emergency Provider Emergency Medicine; PCP Internal Medicine
DX: S10.93XA Contusion of unspecified part of neck, initial encounter (principal); W01.0XXA Fall on same level from slipping, tripping and stumbling without subsequent striking against object, initial encounter
CPT/HCPCS: 70498; 82565; 99284; Q9967

== ENCOUNTER 2024-08-01 10:04 | Outpatient (CLI) | payer MEDICARE, SELFPAY ==
--- NOTE | 2024-08-01 10:15 | CRLHL7_ITS ---
For Patients: As a result of the Century Cures Act, medical imaging exams and procedure reports are released immediately into your electronic medical record. You may view this report before your referring provider. If you have questions, please contact your health care provider. BILATERAL SCREENING MAMMOGRAM WITH COMPUTER-AIDED DETECTION AND TOMOSYNTHESIS TECHNIQUE: CC and MLO views were obtained. These mammographic images have been obtained using full-field digital technique. These mammographic images were interpreted with the benefit of computer-aided detection. Breast Tomosynthesis was used in this interpretation. COMPARISON FILM: Baseline. FINDINGS: The breasts are heterogeneously dense, which may obscure small masses. IMPRESSION: There is no radiographic evidence for malignancy. ASSESSMENT: BI-RADS Category 1: Negative RECOMMENDATION: Routine screening mammogram in 1 year. A lay language report of this examination will be provided to the patient. Stephan Yao M.D. Diagnostic Radiologist [email or web address] SP/Dictated by: Stephan Yao MD @ 08/01/2024 10:53:00 AM (Electronically Signed)
== END 2024-08-01 10:05 | disposition home or self-care (01) ==
LOC: MAMMO 10:05
PROVIDERS: PCP Internal Medicine; Visit Provider Internal Medicine
DX: Z12.31 Encounter for screening mammogram for malignant neoplasm of breast (principal); R92.333 Mammographic heterogeneous density, bilateral breasts
CPT/HCPCS: 77063; 77067

== ENCOUNTER 2024-08-15 20:43 | Emergency (ER) | payer MEDICARE, SELFPAY ==
[2024-08-15] VITALS (9 sets, daily range): BP systolic 147–150; BP diastolic 81–90; PULSE 60–89; RESP 20; TEMP 36.7; O2SAT 93–99; BMI 29.1
--- NOTE | 2024-08-15 21:11 | ED_ITS ---
HPI - General Adult General Date Seen: 08/15/24 Chief complaint: Arrhythmia/Palpitations Stated complaint: Probably in A-fib Time Seen by Provider: 08/15/24 21:11 History of Present Illness HPI narrative: 78-year-old female with history of AFib presenting to the ER tonight with concerned that she is probably in atrial fibrillation. In addition to AFib she has a history of hyperlipidemia, sleep apnea, hypertension, irritable bowel syndrome. In review of previous medical records she was here in the ER in June 2023 for atrial fibrillation. Per that note it has been intermittent for several years. She had been on diltiazem for rate control and Eliquis for stroke prophylaxis. She had presented to the ER for palpitations and was found to be in AFib with RVR heart rate 154. Initially attempted rate control with diltiazem which was only temporarily effective. Also underwent attempt set procedural sedation for cardioversion. She briefly converted to sinus and then within 10-15 beats reverted back to AFib. She was hospitalized for an IV amioda sona infusion and then sent home on amiodarone. Plan was for outpatient cardiology follow-up with Holter monitor, sleep study. In review of medical records from the [facility] system it looks like she had a recent visit to an ER in [place] on 08/03 for atrial fibrillation She was also seen in the ER at [facility] in May for palpitations. She presented with AFib with RVR and then reverted back to sinus rhythm while in the ER. Related Data Home Medications ?Medication ?Instructions ?Recorded ?Confirmed calcium carbonate 600 mg PO DAILY 03/16/22 08/15/24 cholecalciferol (vitamin D3) 50 50 mcg PO DAILY 03/16/22 08/15/24 mcg (2,000 unit) capsule magnesium oxide 500 mg capsule 250 mg PO DAILY 03/16/22 08/15/24 uytllezcdjkl-oerlfxql-cvsyea tablet 1 tab PO DAILY 03/16/22 08/15/24 B-complex with vitamin C 1 cap PO DAILY 06/20/22 08/15/24 lutein 15 mg-zeaxanthin extract 1 cap PO DAILY 04/27/23 08/15/24 0.7 mg capsule omega 0-azn-kmb-fish oil 1,000 mg 2 cap PO DAILY 04/27/23 08/15/24 (120 mg-180 mg) capsule (Fish Oil) Previous Rx's ?Medication ?Instructions ?Recorded metoprolol tartrate 25 mg tablet 25 mg PO DAILY PRN #30 tabs 06/30/23 apixaban 5 mg tablet (Eliquis) 5 mg PO BID #180 tabs 04/23/24 chlorthalidone 25 mg tablet 12.5 mg (1/2 x 25 mg) PO DAILY #45 04/23/24 tabs rosuvastatin 20 mg tablet 20 mg PO DAILY #90 tabs 04/23/24 Allergies Allergy/AdvReac Type Severity Reaction Status Date / Time shellfish derived Allergy Verified 08/15/24 21:20 [facility] Surgical History History of total knee replacement ?Z96.659 - Presence of unspecified artificial knee joint (ICD-10) History of dilation and curettage ?Z98.890 - Other specified postprocedural states (ICD-10) Family History Father Alzheimers disease Social History Narrative: She lives with her marcelo. He is healthcare power of estate planning attorney. She drinks about 5 alcoholic beverages per week. She does not smoke. Code status is full. is healthcare power of estate planning attorney. What is your current living situation?: I presently have a place to live Problems where you live: no known problems Problems where you live details: no known problems In the past 12 months, utilities in danger of being shut off: no In past 12 months, lack of transportation kept you from medical appts, meetings, work, or getting things needed for daily living: no In the past 12 mos, have been you worried that your food would run out before you had money to buy more?: never true In the past 12 mos, the food you bought just didn't last and you didn't have money to buy more?: never true Highest level of school completed/degree received: Master's degree Smoking Status: Never smoker Do you use any of these nicotine containing products: None Second hand tobacco smoke exposure: No How often do you have a drink containing alcohol: never How often do you have six or more drinks on one occasion: Never AUDIT-C Alcohol total score: 0 Non-prescribed substance use: denies use Caffeine: Yes How often does anyone, including family, friends and others, physically hurt you : never How often does anyone, including family, friends and others, insult or talk down to you: never How often does anyone, including family, friends and others, threaten you with harm: never How often does anyone, including family, friends and others, scream or curse at you: never service: No Exam Narrative: Exam Narrative: Constitutional: Appears well-developed and well-nourished. Alert. Conversant. Non toxic. HENT: Head: Atraumatic. Nose: Nose normal. Mouth/Throat: Oral mucosa is clear and moist. no trismus. Pharynx normal. Tonsils symmetric. No tonsillar enlargement, erythema, or exudate. Eyes: Conjunctivae normal. EOM normal. Pupils equal, round, and reactive to light. No scleral icterus. Neck: Normal range of motion. Neck supple. No tracheal deviation present. No thyromegaly Cardiovascular: Normal rate, irregularly irregular rhythm. She has stretches of a few irregular beats interspersed with episodes of her it their day that last a few seconds. She appears to be having interspersed brief episodes of sinus rhythm for 2-3 beats in interspersed with an irregular heart rhythm either sinus with multiple superimposed PACs or probably short runs of atrial fib. No gallop. No friction rub. No murmur heard. Symmetric radial artery pulses Pulmonary/Chest: Effort normal. No stridor. No respiratory distress. No wheezes. No rales. No rhonchi . No tenderness. Abdominal: Soft. Bowel sounds normal. No distension. No mass. No tenderness. No rebound. No guarding. Musculoskeletal: RUE: Normal range of motion. No tenderness. No deformity LUE: Normal range of motion. No tenderness. No deformity RLE: Normal range of motion. No edema. No tenderness. No deformity LLE: Normal range of motion. No edema. No tenderness. No deformity Neurological: Alert and oriented to person, place, and time. Normal strength. CN II-VII intact. No sensory deficit. GCS eye subscore is 4. GCS verbal subscore is 5. GCS motor subscore is 6. Normal coordination Skin: Skin is warm and dry. No rash noted. No pallor. Normal capillary refill. Psychiatric: Normal mood. Normal affect. Const: Vital Signs, click to edit/add: Vital Signs - 24 hr 08/15/24 21:15 08/15/24 21:17 08/15/24 22:51 Temperature 98.0 F Pulse Rate 74 Pulse Rate [Right Pulse Oximeter] 89 Respiratory Rate 20 Blood Pressure Blood Pressure [Ri ght Upper Arm] 150/90 H Pulse Oximetry 99 99 93 Oxygen Delivery Me thod Room Air 08/15/24 23:00 08/15/24 23:15 08/15/24 23:19 Temperature Pulse Rate 69 60 64 Pulse Rate [Right Pulse Oximeter] Respiratory Rate Blood Pressure 147/81 H Blood Pressure [Ri ght Upper Arm] Pulse Oximetry 94 97 95 Oxygen Delivery Me thod 08/15/24 23:20 08/15/24 23:30 08/15/24 23:45 Temperature Pulse Rate 60 73 76 Pulse Rate [Right Pulse Oximeter] Respiratory Rate Blood Pressure Blood Pressure [Ri ght Upper Arm] Pulse Oximetry 96 93 96 Oxygen Delivery Me thod 08/16/24 00:00 08/16/24 00:15 Temperature Pulse Rate 71 75 Pulse Rate [Right Pulse Oximeter] Respiratory Rate Blood Pressure Blood Pressure [Ri ght Upper Arm] Pulse Oximetry 95 96 Oxygen Delivery Me thod Course Course ED Course: Recheck-she felt her heart converted and go back to a normal rhythm. She is now feeling back to normal Vital Signs Vital signs: Initial Vital Signs Pulse Oximetry 99 08/15/24 21:15 Vital Signs Pulse Oximetry 99 08/15/24 21:15 Temperature 98.0 F 08/15/24 21:17 Pulse Rate 75 08/16/24 00:15 Respiratory Rate 20 08/15/24 21:17 Blood Pressure 147/81 H 08/15/24 23:19 Pulse Oximetry 96 08/16/24 00:15 Oxygen Delivery Method Room Air 08/15/24 21:17 Medical Decision Making MDM Narrative Medical decision making narrative: This patient presents for evaluation of palpitations. Initial ECG is read by the computer does show sinus rhythm with marked sinus arrhythmia but on my read I think this probably is sinus rhythm interspersed with very short runs of AFib. Also consider possible sinus rhythm with multiple superimposed PACs.. court monitor while the patient here in the ER showed what appears to be short runs of sinus rhythm interspersed with short runs of narrow complex tachycardia. She will go back and forth in and out of AFib every few seconds. Overall heart rate is in the 90s-100. No significant RVR. A broad differential diagnosis was considered including SVT, Atrial fibrillation, ventricular arrhythmia, thyroid disease, acute electrolyte abnormality, drugs/medications, caffeine intake or other stimulants, medication side effect, anemia, heart disease, among others. Patient converted back to sinus rhythm while she was here in the ER. The workup and exam here in ED shows not specific cause of the patient's palpitations, and no risks factors to warrant admission. Patient is frustrated because she has had a long history of AFib, probably for years, although she did not realize it up until last year. She had been doing well for several months with no runs of AFib but now has had 4 or 5 episodes in the past month or 2. She is not sure what to do about it. We put a call out to [facility]. They recommend having the patient call tomorrow morning to schedule a follow-up appointment. Patient says she already has an appointment to see a front desk attendant here in [place] (the visiting front desk attendant from [facility]) on September 05 . She is eager to get discharged home tonight. She will call [facility] main office tomorrow to see if she can get an early appointment with 1 of the front desk attendant [facility]. Cardiology ecommends that she continue on her current medication regimen until follow-up. We discussed indications for return to the ER and how to manage subsequent episodes of AFib. Lab Data Labs: Lab Results 08/15/24 08/15/24 Range/Units 22:41 22:47 WBC 7.98 (4.50-11.00) K/uL RBC 4.69 (4.00-5.20) m/uL Hgb 13.3 (12.0-16.0) gm/dL Hct 41.4 (33.0-51.0) % MCV 88 (80-100) fL MCH 28 (26-34) pg MCHC 32 (32-36) gm/dL RDW Coeff of [place] 13.6 (11.5-15.5) % Plt Count 188 (140-440) K/uL Neut % (Auto) 58.7 (42.0-72.0) % Lymph % (Auto) 31.7 (20-44) % Bee % (Auto) 6.4 (0.0-11.0) % Eos % (Auto) 2.8 (0.0-7.0) % Baso % (Auto) 0.3 (0.0-3.0) % Neut # (Auto) 4.69 (1.7-7.0) K/uL Lymph # (Auto) 2.53 (0.90-2.90) K/uL Bee # (Auto) 0.50 (0.00-0.90) K/UL Eos # (Auto) 0.22 (0.00-0.50) K/uL Baso # (Auto) 0.02 (0.00-0.30) K/uL Abs Immat Gran (auto) 0.01 (0.00-0.30) K/uL Imm/Tot Granulo (auto) 0.1 % Sodium 139 (135-149) mmol/L Potassium 3.6 (3.6-5.1) mmol/L Chloride 103 (96-114) mmol/L Carbon Dioxide 31 (20-32) mmol/L Anion Gap 5 L (7-15) mEq/L BUN 22 (7-30) mg/dL Creatinine 0.8 (0.5-1.5) mg/dL Estimated Creat Clear 48.30 Estimated GFR 79 ml/min Glucose 113 (60-115) mg/dL Calcium 10.2 (8.4-10.6) mg/dL Troponin I < 0.01 L (0.01-0.04) ng/mL ECG Data Attestation: I personally reviewed and interpreted this ECG as follows: Interpretation: Normal sinus rhythm with sinus arrhythmia and he see his. Rate: 94 MD: 130 QRS axis: Normal QRS axis ST segment/T wave: Nonspecific ST depression in lead V3-V6, 2, AVF. Possible ST-elevation AVR only. QTc: 420 Discharge Plan Discharge Clinical Impression: AF (paroxysmal atrial fibrillation) Patient Disposition: Home, Self-Care Condition: Stable Instructions: A-fib (Atrial Fibrillation) (ED) Additional Instructions: For now, please continue on your blood medications including your blood thinner. Use her metoprolol as needed if you go into AFib. Please call the [facility] scheduling line at [phone] tomorrow morning at 9:00 a.m. to schedule an ER follow-up appointment. Please return to the ER right away if you have more episodes of racing heart, dizzy spells or fainting, chest pain, trouble breathing, or any concerns. Prescriptions: No Action B-complex with vitamin C Capsule 1 cap PO DAILY lutein-zeaxanthin extract 15-0.7 mg capsule 1 cap PO DAILY rosuvastatin 20 mg tablet 20 mg PO DAILY Qty: 90 3RF chlorthalidone 25 mg tablet 12.5 mg PO DAILY Qty: 45 3RF Eliquis 5 mg tablet 5 mg PO BID Qty: 180 3RF metoprolol tartrate 25 mg tablet 25 mg PO DAILY PRNQty: 30 0RF Rx Instructions: Confirm you are in AFIB. If rate is >120 and your systolic blood pressure (top number) is >110 then take 1 tab of metoprolol. May repeat with same parameters 1 hour later if needed. magnesium oxide 500 mg capsule 250 mg PO DAILY calcium carbonate 600 mg calcium (1,500 mg) tablet 600 mg PO DAILY kdfqetwdcxog-eauzyxgr-wquzch Tablet 1 tab PO DAILY cholecalciferol (vitamin D3) 50 mcg (2,000 unit) capsule 50 mcg PO DAILY omega 5-nav-mvu-fish oil [Fish Oil] 1,000 mg (120 mg-180 mg) capsule 2 cap PO DAILY Follow Up/Referrals: Tiana Monteiro MD [Primary Care Provider] - Stand Alone Forms: [employer] Info Instructions
[2024-08-15 22:48] LABS: Basophils Absolute Auto 0.02 K/uL (0.00-0.30); Basophils Percent Auto 0.3 % (0.0-3.0); Eosinophils Absolute Auto 0.22 K/uL (0.00-0.50); Eosinophils Percent Auto 2.8 % (0.0-7.0); Hematocrit 41.4 % (33.0-51.0); Hemoglobin* 13.3 gm/dL (12.0-16.0); Immature Granulocytes Abs Auto 0.01 K/uL (0.00-0.30); Immature Granulocytes Pct Auto 0.1 %; Lymphocytes Absolute Auto 2.53 K/uL (0.90-2.90); Lymphocytes Percent Auto 31.7 % (20-44); Mean Corpuscular HGB Conc 32 gm/dL (32-36); Mean Corpuscular Hemoglobin 28 pg (26-34); Mean Corpuscular Volume 88 fL (80-100); Monocytes Percent Auto 6.4 % (0.0-11.0); Neutrophils Absolute Auto 4.69 K/uL (1.7-7.0); Neutrophils Percent Auto 58.7 % (42.0-72.0); Platelet Count* 188 K/uL (140-440); RDW Coefficient of Variation % 13.6 % (11.5-15.5); Red Blood Count 4.69 m/uL (4.00-5.20); White Blood Count* 7.98 K/uL (4.50-11.00)
[2024-08-15 23:04] LABS: Chloride* 103 mmol/L (96-114); Potassium* 3.6 mmol/L (3.6-5.1); Sodium* 139 mmol/L (135-149)
[2024-08-15 23:07] LABS: Anion Gap 5 mEq/L (7-15); Carbon Dioxide* 31 mmol/L (20-32); Creatinine* 0.8 mg/dL (0.5-1.5); Estimated Glomerular Filt Rate 79 ml/min
[2024-08-15 23:08] LABS: Blood Urea Nitrogen* 22 mg/dL (7-30); Calcium* 10.2 mg/dL (8.4-10.6); Glucose* 113 mg/dL (60-115)
[2024-08-15 23:21] LABS: Slide Review Reflex No
[2024-08-15 23:27] LABS: Troponin I* < 0.01 ng/mL (0.01-0.04)
[2024-08-16] VITALS: PULSE 71; O2SAT 95
[2024-08-16 00:15] VITALS: PULSE 75; O2SAT 96
== END 2024-08-16 00:31 | disposition home or self-care (01) ==
PROVIDERS: Emergency Provider Emergency Medicine; PCP Internal Medicine
DX: I48.0 Paroxysmal atrial fibrillation (principal)
CPT/HCPCS: 36415; 80048; 84484; 85025; 93005; 94761; 99284

== ENCOUNTER 2025-05-20 07:54 | Outpatient (CLI) | payer MEDICARE, SELFPAY | END 2025-05-20 07:55 | disposition home or self-care (01) | LOC: NFLDREF 05-21 10:32 | PROVIDERS: PCP Internal Medicine; Referring Provider Internal Medicine; Visit Provider Internal Medicine | DX: E78.5 Hyperlipidemia, unspecified (principal); I10 Essential (primary) hypertension | CPT/HCPCS: 80048; 80061 ==

== ENCOUNTER 2025-08-19 15:08 | Outpatient (CLI) | payer MEDICARE, SELFPAY ==
--- NOTE | 2025-08-19 15:20 | CRLHL7_ITS ---
For Patients: As a result of the Century Cures Act, medical imaging exams and procedure reports are released immediately into your electronic medical record. You may view this report before your referring provider. If you have questions, please contact your health care provider. INDICATION: BILATERAL SCREENING MAMMOGRAM, ASYMPTOMATIC 74 Y/O FEMALE COMPARISON: 08/01/2024 TECHNIQUE: Digital mammogram in CC and MLO projections including computer-aided detection (CAD) and tomosynthesis. BREAST COMPOSITION: The breasts are heterogeneously dense, which may obscure small masses. FINDINGS: No suspicious findings. ASSESSMENT: BI-RADS 2 Benign RECOMMENDATION: Annual screening mammogram. A lay language report of this examination will be provided to the patient. Dictated by: Stephan Yao MD @ 08/20/2025 10:16:07 (Electronically Signed)
== END 2025-08-19 15:09 | disposition home or self-care (01) ==
LOC: MAMMO 15:09
PROVIDERS: PCP Internal Medicine; Visit Provider Internal Medicine
DX: Z12.31 Encounter for screening mammogram for malignant neoplasm of breast (principal); R92.333 Mammographic heterogeneous density, bilateral breasts
CPT/HCPCS: 77063; 77067